=== PATIENT | male | born 1940 | race Caucasian/White ===

== ENCOUNTER 2016-09-26 13:52 | Emergency (ER) | payer MEDICARE, BC | END 2016-09-26 15:47 | disposition home or self-care (01) | DX: S63.501A Unspecified sprain of right wrist, initial encounter (principal); W01.0XXA Fall on same level from slipping, tripping and stumbling without subsequent striking against object, initial encounter; Y92.410 Unspecified street and highway as the place of occurrence of the external cause; Z79.4 Long term (current) use of insulin; E78.00 Pure hypercholesterolemia, unspecified; Z79.84 Long term (current) use of oral hypoglycemic drugs; Z79.01 Long term (current) use of anticoagulants; I48.91 Unspecified atrial fibrillation; E11.42 Type 2 diabetes mellitus with diabetic polyneuropathy ==

== ENCOUNTER 2016-10-12 10:13 | Outpatient (CLI) | payer MEDICARE, BC | END 2016-10-12 10:14 | disposition home or self-care (01) | DX: E87.6 Hypokalemia (principal) ==

== ENCOUNTER 2016-10-31 11:14 | Outpatient (CLI) | payer MEDICARE, BC | END 2016-10-31 11:15 | disposition home or self-care (01) | DX: M19.031 Primary osteoarthritis, right wrist (principal) ==

== ENCOUNTER 2016-12-15 11:46 | Outpatient (CLI) | payer MEDICARE, BC | END 2016-12-15 11:47 | disposition home or self-care (01) | DX: E11.65 Type 2 diabetes mellitus with hyperglycemia (principal); Z79.899 Other long term (current) drug therapy ==

== ENCOUNTER 2017-02-07 09:56 | Outpatient (CLI) | payer MEDICARE, BC ==
[2017-02-07 14:29] LABS: BASOPHILS % (AUTO) 0.5 %; EOSINOPHILS # (AUTO) 0.2 10^3/uL (0.0-0.7); EOSINOPHILS % (AUTO) 2.3 %; HCT - HEMATOCRIT 42.9 % (42.0-52.0); HGB - HEMOGLOBIN 14.3 g/dL (14.0-18.0); LYMPHOCYTES # (AUTO) 1.9 10^3/uL (1.5-3.5); LYMPHOCYTES % (AUTO) 24.2 %; MEAN CORPUSCULAR HEMOGLOBIN 28.9 pg (27.0-31.0); MEAN CORPUSCULAR HGB CONC 33.2 g/dL (32.0-36.0); MEAN PLATELET VOLUME 8.6 fL (7.4-11.4); MONOCYTES # (AUTO) 0.7 10^3/uL (0.0-1.0); MONOCYTES % (AUTO) 9.5 %; NEUTROPHILS % (AUTO) 63.5 %; RED BLOOD COUNT 4.94 10^6/uL (4.70-6.10); RED CELL DISTRIBUTION WIDTH 15.3 % (12.0-15.0); UNCORRECTED WHITE BLOOD COUNT 7.8 x10^3/uL; WHITE BLOOD COUNT 7.8 x10^3/uL (4.8-10.8)
[2017-02-07 14:47] LABS: ALBUMIN/GLOBULIN RATIO 1.1 (1.0-2.2); BILIRUBIN,TOTAL 1.4 mg/dL (0.2-1.0); BUN - BLOOD UREA NITROGEN 17 mg/dL (6-20); CALCIUM 9.1 mg/dL (8.5-10.3); CARBON DIOXIDE - CO2 30 mmol/L (21-32); CHLORIDE 101 mmol/L (101-111); CHOL/HDL RATIO 3.1 (<5.0); CHOLESTEROL 104 mg/dL; CREATININE 0.9 mg/dL (0.6-1.2); GFR - MDRD 82 (>89); GLUCOSE 68 mg/dL (70-100); HDL CHOLESTEROL 34 mg/dL; LDL/HDL RATIO 1.6 (<3.6); POTASSIUM 4.2 mmol/L (3.5-5.0); SODIUM 140 mmol/L (135-145); TOTAL PROTEIN 7.7 g/dL (6.7-8.2); TRIGLYCERIDES 83 mg/dL; VLDL CHOLESTEROL 17 mg/dL
== END 2017-02-07 09:57 | disposition home or self-care (01) ==
LOC: LAB.R 09:56
PROVIDERS: ATTEND Internal Medicine
DX: E03.9 Hypothyroidism, unspecified (principal); E78.2 Mixed hyperlipidemia; Z79.899 Other long term (current) drug therapy
CPT/HCPCS: 80053; 80061; 84443; 85025

== ENCOUNTER 2017-04-23 08:00 | Outpatient (CLI) | payer MEDICARE, BC ==
[2017-04-23 13:01] LABS: HEMOGLOBIN A1C 1.1 g/dL
== END 2017-04-23 08:01 | disposition home or self-care (01) ==
LOC: LAB.R 08:00
PROVIDERS: ATTEND Internal Medicine
DX: E11.65 Type 2 diabetes mellitus with hyperglycemia (principal)
CPT/HCPCS: 83036

== ENCOUNTER 2017-05-01 13:14 | Outpatient (CLI) | payer MEDICARE, BC ==
--- NOTE | 2017-05-02 10:03 | Ultrasound Report ---
CAROTID ULTRASOUND: 05/01/2017 TECHNIQUE: Real-time sonographic vascular imaging was performed by the senior data quality analyst through the carotid arteries utilizing both color-flow and Doppler spectral analysis. Multiple client service representative static images were saved for review. Vessel PSV cm/sec 2D Plaque Estimate % EDV cm/sec ICA/CCA PSV % Stenosis RCCA Prox 84 -- RCCA Dist 61 7 -- RECA 84 -- RT BULB 63 -- 5 1.0 WILBERTO Prox 52 -- 10 0.85 WILBERTO Mid 61 -- 14 1.0 WILBERTO Dist 43 -- 10 0.70 RVA 41 RVA flow direction: Antegrade. Vessel PSV cm/sec 2D Plaque Estimate % EDV cm/sec ICA/CCA PSV % Stenosis LCCA Prox 74 -- LCCA Dist 67 12 -- LECA 60 -- LFT BULB 58 -- 12 0.86 LICA Prox 59 -- 14 0.88 LICA Mid 76 -- 22 1.13 LICA Dist 127 -- 24 1.9 LVA 44 LVA flow direction: Antegrade. Velocity criteria are extrapolated from diameter data as defined by the Society of Radiologists in Ultrasound Consensus Conference Radiology 2003; 229; 340-346. Degree of Stenosis % ICA PSV cm/sec Plaque Estimate % ICA/CCA RSV Ratio ICA EDV cm/sec Normal < 125 None < 2.0 < 40 <50 < 125 < 50 < 2.0 < 40 50-69 125 - 130 >/= 50 2.0 - 4.0 40 - 100 >/= 70 but less than near occlusion > 230 >/= 50 > 4.0 > 100 Near occlusion High, low, or undetectable Visible lumen Variable Variable Total occlusion Undetectable No detectable lumen Not applicable Not applicable FINDINGS RIGHT: There is mild plaquing in the right carotid bifurcation, without evidence of a focal hemodynamically significant carotid stenosis. LEFT: There is mild plaquing in the left carotid bifurcation, without evidence of a focal hemodynamically significant carotid stenosis. The vertebral arteries demonstrate antegrade flow bilaterally. CONCLUSION: NO FLOW-LIMITING STENOSIS IN EITHER CAROTID SYSTEM. BILATERAL VERTEBRAL ARTERY ANTEGRADE BLOOD FLOW. [facility]
== END 2017-05-01 13:15 | disposition home or self-care (01) ==
LOC: DI 13:14
PROVIDERS: ATTEND Internal Medicine
DX: G45.9 Transient cerebral ischemic attack, unspecified (principal)
CPT/HCPCS: 93880

== ENCOUNTER 2017-05-17 09:50 | Outpatient (CLI) | payer MEDICARE, BC ==
[2017-05-17 18:05] LABS: CREATININE 0.6 mg/dL (0.6-1.2)
== END 2017-05-17 09:51 | disposition home or self-care (01) ==
LOC: LAB.R 09:50
PROVIDERS: ATTEND Internal Medicine
DX: G45.9 Transient cerebral ischemic attack, unspecified (principal)
CPT/HCPCS: 82565

== ENCOUNTER 2017-05-18 12:12 | Emergency (ER) | payer MEDICARE, BC ==
[2017-05-18] MEDS ORDERED: ACETAMINOPHEN 325 MG TABLET PO STA (12:55)
--- NOTE | 2017-05-18 12:57 | ED Physician Documentation ---
History of Present Illness - Stated complaint Stated Complaint: R ELBOW LAC - Chief complaint Chief Complaint: General - History obtained from History obtained from: Patient - History of Present Illness Timing: How many hours ago (8) Pain level max: 6 Pain level now: 6 - Additonal information Additional information: Patient is a 77-year-old male who was getting up this morning to try to use the bathroom, tripped and fell. Landed on his right elbow suffering an abrasion to the posterior aspect of the right elbow. Also struck his head and neck on the wall as he fell. Now complains of increasing neck pain. No numbness or tingling. Mild headache. Patient does take Pradaxa. Has not taken anything for the pain this morning. States his last tetanus shot was within the last 10 years. No other reported injuries. Pain is better with rest and worse with movement. Review of Systems Constitutional: denies: Fever, Chills Cardiac: denies: Chest pain / pressure Respiratory: denies: Cough GI: denies: Abdominal Pain, Nausea, Vomiting : denies: Unable to Void Skin: denies: Rash Musculoskeletal: denies: Back pain Neurologic: denies: Focal weakness, Numbness, Confused, Altered mental status PD PAST MEDICAL HISTORY - Past Medical History Cardiovascular: High cholesterol, Atrial fibrillation, Murmur, Valve disorder Respiratory: Asthma Neuro: Peripheral neuropathy Endocrine/Autoimmune: Type 2 diabetes GI: GERD, Chronic constipation : None HEENT: None Psych: None Musculoskeletal: Other Derm: Other - Past Surgical History Past Surgical History: Yes General: Colonoscopy, EGD Ortho: Knee replacement, Rotator cuff repair, Carpal Tunnel surgery, Spine surgery Cardiovascular: CABG, Coronary stent HEENT: Tonsil/Adenoidectomy Derm: Skin cancer surgery - Present Medications Home Medications: Ambulatory Orders Medication Instructions Recorded Confirmed Insulin Aspart (Vial) [NovoLOG] 0 - 20 units SUBQ TIDWM 03/06/13 05/18/17 Insulin Detemir [Levemir] 46 unit SQ BID 03/06/13 05/18/17 Ramipril [Altace] 10 mg PO DAILY 03/06/13 05/18/17 Tramadol HCl [Ultram ER] 300 mg PO QPM 03/06/13 05/18/17 metFORMIN [Glucophage] 1,000 mg PO BIDWM 03/06/13 05/18/17 Calcium Carbonate/Vitamin D3 1 each PO DAILY 04/16/13 05/18/17 [Calcium 500 + Vit D 200 Caplet] Hydrochlorothiazide 12.5 mg PO DAILY 04/16/13 05/18/17 Metoprolol Succinate [Toprol Xl] 25 mg PO BID 04/16/13 05/18/17 Multivitamin [Multivitamins] 1 each PO DAILY 04/16/13 05/18/17 Pregabalin [Lyrica] 200 - 300 mg PO BID 04/16/13 05/18/17 Glucosamine/Chondroitin Sulf A 1 cap PO BID 07/31/14 05/18/17 [Glucosamine Chondroitin Cap] Atorvastatin Calcium 80 mg PO QPM 02/26/15 05/18/17 Dabigatran Etexilate Mesylate 150 mg PO BID 02/26/15 05/18/17 [Pradaxa] Levothyroxine [Synthroid] 75 mcg PO DAILY 09/03/15 05/18/17 - Allergies Allergies/Adverse Reactions: Allergies Allergy/AdvReac Type Severity Reaction Status Date / Time codeine [Codeine] Allergy Severe Emesis Verified 05/18/17 13:06 - Social History Does the pt smoke?: No Smoking Status: Never smoker Does the pt drink ETOH?: No Does the pt have substance abuse?: No - Immunizations Immunizations are current?: Yes PD ED PE NORMAL - Vitals Vital signs reviewed: Yes - General General: Alert and oriented X 3, No acute distress, Well developed/nourished - HEENT HEENT: Atraumatic, PERRL, EOMI, Ears normal, Moist mucous membranes, Pharynx benign - Neck Neck: Supple, no meningeal sign, Other (Mild diffuse midline tenderness to palpation over the entire cervical spine. Mainly C2 through C4.) - Cardiac Cardiac: RRR, Strong equal pulses - Respiratory Respiratory: No respiratory distress, Clear bilaterally - Abdomen Abdomen: Soft, Non tender, Non distended - Back Back: No spinal TTP - Derm Derm: Warm and dry, No rash - Extremities Extremities: No deformity, Other (Abrasions to the posterior aspect of the right elbow. Is able to fully range the right elbow, but does have pain. Is able to pronate and supinate the elbow without pain. Does have mildly swollen soft tissues along the posterior aspect of the distal humerus. Neurovascularly intact. Tenderness to palpation over the distal humerus. Otherwise normal exam of the 4 extremities) - Neuro Neuro: Alert and oriented X 3, administrative professional 2-12 intact, No motor deficit, No sensory deficit, Normal speech GCS Score: 15 - Psych Psych: Normal mood, Normal affect Results - Vitals Vitals: Vital Signs - 24 hr 05/18/17 05/18/17 12:17 14:35 Temperature 35.9 C L 36.4 C L Heart Rate 63 61 Respiratory 16 18 Rate Blood Pressure 151/73 H 137/75 H O2 Saturation 99 99 Oxygen O2 Source Room air - Rads (name of study) Head CT Radiology: Prelim report reviewed, EMP read contemporaneously, See rad report ( Generalized age-related cortical atrophic changes without evidence of acute intracranial abnormality) Cervical spine CT Radiology: Prelim report reviewed, EMP read contemporaneously, See rad report ( No acute bony abnormality. 2. Multilevel moderate to marked central spinal canal stenosis with flattening of the cervical cord due to extensive dystrophic confluent calcification of the posterior longitudinal ligament. ) Right elbow x-ray Radiology: Prelim report reviewed, EMP read contemporaneously, See rad report ( No acute bony abnormality. ) PD MEDICAL DECISION MAKING - ED course Complexity details: reviewed results, re-evaluated patient, considered differential, d/w patient ED course: Patient is a 77-year-old male who is status post a ground-level fall at home. Pain improved with Tylenol. He does take Pradaxa and did strike his head, therefore head CT is performed with no acute abnormalities. No acute bony abnormalities in the cervical spine, appears to have paraspinal spasm, will utilize Tylenol for this at home as well as his tramadol. Patient also has an abrasion to the right posterior elbow, this was cleansed and bandaged. Tolerated well. Warnings of infection and instructions on wound care given at bedside. No acute findings on x-ray. Ambulating well in the emergency department. No focal neurological deficits. No other injuries. Patient counseled regarding signs and symptoms for which I believe and urgent re- evaluation would be necessary. Patient with good understanding of and agreement to plan and is comfortable going home at this time This document was made in part using voice recognition software. While efforts are made to proofread this document, sound alike and grammatical errors may occur. Departure - Departure Disposition: 01 Home, Self Care Clinical Impression: Fall Qualifiers: Encounter type: initial encounter Qualified Code(s): W19.XXXA - Unspecified fall, initial encounter Elbow abrasion Qualifiers: Encounter type: initial encounter Laterality: right Qualified Code(s): S50.311A - Abrasion of right elbow, initial encounter Elbow contusion Qualifiers: Encounter type: initial encounter Laterality: right Qualified Code(s): S50.01XA - Contusion of right elbow, initial encounter Neck strain Qualifiers: Encounter type: initial encounter Qualified Code(s): S16.1XXA - Strain of muscle, fascia and tendon at neck level, initial encounter Condition: Good Instructions: ED Abrasion, ED Sprain Strain Neck Follow-Up: Steven Garcia MD [Primary Care Provider] - Within 1 week Comments: Return if you worsen. Keep the wound clean. Your xrays and CT are normal today. You can use tramadol and tylenol for pain. Use a heating pad for your neck and gently stretch it thoughout the day. Your blood pressure was elevated today on check in to the emergency department. This does not mean that you have hypertension, it is a common phenomenon to check into the emergency department and have elevated blood pressure. I recommend that you see your primary care physician within the week to have it rechecked when you're feeling better. Discharge Date/Time: 05/18/17 14:35
[2017-05-18] MEDS ORDERED: ACETAMINOPHEN 325 MG TABLET PO ONE (13:40)
--- NOTE | 2017-05-18 14:00 | CT Preliminary Report ---
Exam: CT Head W/O IMPRESSION: Generalized age-related cortical atrophic changes without evidence of acute intracranial abnormality. [facility] SITE ID: [id number]
[2017-05-18] MEDS ORDERED: BACITRACIN OINT TOP ONE (14:01)
--- NOTE | 2017-05-18 14:02 | XRAY Preliminary Report ---
Exam: XR Elbow 3 View RT IMPRESSION: No acute bony abnormality. [facility] SITE ID: [id number]
--- NOTE | 2017-05-18 14:11 | CT Preliminary Report ---
Exam: CT Cervical Spine W/O IMPRESSION: 1. No acute bony abnormality. 2. Multilevel moderate to marked central spinal canal stenosis with flattening of the cervical cord d ue to extensive confluent calcification of the posterior longitudinal ligament. [facility] SITE ID: [id number]
--- NOTE | 2017-05-18 14:14 | XRAY Report ---
EXAM: RIGHT ELBOW RADIOGRAPHY EXAM DATE: 05/18/2017 01:35 PM. CLINICAL HISTORY: Fall right elbow pain. COMPARISON: None. TECHNIQUE: 3 views. FINDINGS: Bones: Normal. No fractures or bone lesions. Joints: Normal. Dystrophic calcifications at the superior attachment of both collateral ligament comp lexes indicating remote injury. No effusion. No subluxation. Soft Tissues: Large intact osteophyte at the triceps insertion at the olecranon. IMPRESSION: No acute bony abnormality. [facility] Referring Provider Line: [phone] SITE ID: [id number]
--- NOTE | 2017-05-18 14:14 | CT Report ---
EXAM: CT HEAD EXAM DATE: 05/18/2017 01:20 PM. CLINICAL HISTORY: Fall, head injury, patient on pradaxa. Pain. COMPARISON: None. TECHNIQUE: Multiaxial CT images were obtained from the foramen magnum to the vertex. IV contrast: Non e. Reformats: Coronal. In accordance with CT protocol optimization, one or more of the following dose reduction techniques w ere utilized for this exam: automated exposure control, adjustment of mA and/or KV based on patient s ize, or use of iterative reconstructive technique. FINDINGS: Parenchyma: No intraparenchymal hemorrhage. No evidence of mass, midline shift, or CT findings of acu te infarction. Merritt-white differentiation is distinct. Extraaxial Spaces: Normal for age. No subdural or epidural collections identified. Ventricles: The ventricles and cortical sulci are enlarged, consistent with age-related tissue loss. Sinuses: Imaged paranasal sinuses, orbits, and mastoids show no significant abnormality. Bones: No evidence of fracture or calvarial defect. Other: Diffuse chronic microangiopathic white matter changes are evident. IMPRESSION: Generalized age-related cortical atrophic changes without evidence of acute intracranial abnormality. [facility] Referring Provider Line: [phone] SITE ID: [id number]
--- NOTE | 2017-05-18 14:21 | CT Report ---
EXAM: CT CERVICAL SPINE WITHOUT CONTRAST DATE: 05/18/2017 01:31 PM HISTORY: Fall with head trauma this morning, neck pain. COMPARISONS: None. TECHNIQUE: Thin-section axial images were acquired of the cervical spine without contrast. Post-proce ssing: Coronal and sagittal reformats. Other: None. In accordance with CT protocol optimization, one or more of the following dose reduction techniques w ere utilized for this exam: automated exposure control, adjustment of mA and/or KV based on patient s ize, or use of iterative reconstructive technique. FINDINGS: Alignment: Normal. No scoliosis or spondylolisthesis. Bones: No fracture or bone lesion. Interspace Levels/Facets: Moderate narrowing of the C4-C5, C5-C6 and C6-C7 disk spaces with moderate subcortical sclerosis and moderate-caliber osteophytes. Extensive dystrophic confluent calcification in the posterior longitudinal ligament more prominent on the left, from the level of the base of the odontoid inferiorly to the superior endplate of C5. This causes marked compromise of the central spinal canal such that there is moderate to marked bony neur oforaminal compromise throughout this length with flattening of the cervical cord. There is a lesser degree of central spinal canal stenosis at C5-C6, moderate in degree. There is an old moderate-sized disk herniation at C6-C7 with moderate bony central spinal canal compr omise. There is multilevel marked bony neuroforaminal compromise. Musculature: Normal. No fatty atrophy. Other: The paravertebral and prevertebral soft tissues are normal. The lung apices are clear. IMPRESSION: 1. No acute bony abnormality. 2. Multilevel moderate to marked central spinal canal stenosis with flattening of the cervical cord d ue to extensive dystrophic confluent calcification of the posterior longitudinal ligament. [facility] Referring Provider Line: [phone] SITE ID: [id number]
[2017-05-18 14:36] VITALS: BP 137/75
== END 2017-05-18 14:35 | disposition home or self-care (01) ==
LOC: ED 12:12
DX: S16.1XXA Strain of muscle, fascia and tendon at neck level, initial encounter (principal); S50.01XA Contusion of right elbow, initial encounter; S50.311A Abrasion of right elbow, initial encounter; W01.0XXA Fall on same level from slipping, tripping and stumbling without subsequent striking against object, initial encounter; Y92.019 Unspecified place in single-family (private) house as the place of occurrence of the external cause; E78.00 Pure hypercholesterolemia, unspecified; I48.91 Unspecified atrial fibrillation; J45.909 Unspecified asthma, uncomplicated; E11.42 Type 2 diabetes mellitus with diabetic polyneuropathy; Z79.4 Long term (current) use of insulin; K21.9 Gastro-esophageal reflux disease without esophagitis; I25.10 Atherosclerotic heart disease of native coronary artery without angina pectoris; Z95.1 Presence of aortocoronary bypass graft; Z85.828 Personal history of other malignant neoplasm of skin
CPT/HCPCS: 70450; 72125; 73080; 99283; 99284; A9270

== ENCOUNTER 2017-05-21 12:52 | Outpatient (CLI) | payer MEDICARE, BC ==
[~2017-05-21 12:52] MED LIST: GADOBUTROL 10 MMOL/10 ML VIAL ONE
[2017-05-21] MEDS ORDERED: GADOBUTROL 10 MMOL/10 ML VIAL IVP ONE (13:44)
--- NOTE | 2017-05-21 14:29 | MRI Report ---
EXAM: MRI BRAIN WITHOUT AND WITH CONTRAST EXAM DATE: 05/21/2017 01:49 PM. CLINICAL HISTORY: TIA. COMPARISON: CT head 05/18/2017. TECHNIQUE: Multiplanar, multisequence T1-weighted and fluid-sensitive MR sequences of the brain were performed. Sequences optimized for routine evaluation. Other: None. Without and with IV Contrast: 10 cc GADAVIST. FINDINGS: Brain Volume: Normal for age. Parenchyma/Dura: No acute parenchymal hemorrhage, mass, or midline shift. [id number] bilateral areas of T2/FLAIR signal hyperintensity seen. Old chronic lacunar infarcts are seen within the left c erebellum, right and left courtney, and bilateral basal ganglia. No areas of restricted diffusion to sugg est acute infarct. No abnormal areas of parenchymal susceptibility to suggest prior hemorrhage. No ab normal postcontrast enhancement. Pituitary: Normal. Ventricles/Cisterns: No abnormal extra axial fluid collection/mass seen. There is asymmetry to the la teral ventricles with a larger right lateral ventricle compared to the left. This may be a normal sahra tomic variant. No evidence hydrocephalus. Cisterns are patent. Fluid is seen within Meckel's caves. V isualized internal auditory canals appear clear. Sinuses: Minimal mucosal thickening of the ethmoid air cells. Mastoid air cells middle ear cavities a re clear. Orbits: Changes of bilateral lens replacement. Vasculature: The visualized major intracranial flow voids are maintained. Dural sinuses are patent. Bones: Normal. Other: None. IMPRESSION: 1. No acute infarct, intracranial hemorrhage, mass, hydrocephalus, or abnormal postcontrast enhanceme nt. 2. Bypq-ea-jjalprye white matter changes including old chronic lacunar infarcts of the left cerebellu m, right and left courtney, and bilateral basal ganglia. Findings likely represent sequela of chronic sma ll vessel ischemic disease. [facility] Referring Provider Line: [phone] SITE ID: [id number]
== END 2017-05-21 12:53 | disposition home or self-care (01) ==
LOC: DI 12:52
PROVIDERS: ATTEND Internal Medicine
DX: G45.9 Transient cerebral ischemic attack, unspecified (principal); Z86.73 Personal history of transient ischemic attack (TIA), and cerebral infarction without residual deficits
CPT/HCPCS: 70553; A9585

== ENCOUNTER 2017-08-14 10:30 | Outpatient (CLI) | payer MEDICARE, BC | END 2017-08-14 10:31 | disposition home or self-care (01) | LOC: LAB.R 10:30 | PROVIDERS: ATTEND Podiatrist | DX: E11.622 Type 2 diabetes mellitus with other skin ulcer (principal) | CPT/HCPCS: 87070; 87205 ==

== ENCOUNTER 2017-10-01 19:09 | Outpatient (CLI) | payer MEDICARE, BC ==
[2017-10-01 13:16] LABS: HB2 TOTAL 14.1 g/dL; HEMOGLOBIN A1C 1.13 g/dL; HEMOGLOBIN A1C % 9.5 % (4.6-6.2)
== END 2017-10-01 19:10 | disposition home or self-care (01) ==
LOC: LAB.R 19:09
PROVIDERS: ATTEND Internal Medicine
DX: E11.29 Type 2 diabetes mellitus with other diabetic kidney complication (principal)
CPT/HCPCS: 83036

== ENCOUNTER 2018-01-15 08:00 | Outpatient (CLI) | payer MEDICARE, BC ==
[2018-01-15 19:38] LABS: HB2 TOTAL 13.9 g/dL; HEMOGLOBIN A1C 0.94 g/dL; HEMOGLOBIN A1C % 8.3 % (4.6-6.2)
== END 2018-01-15 08:01 | disposition home or self-care (01) ==
LOC: LAB.R 08:00
PROVIDERS: ATTEND Internal Medicine
DX: E11.65 Type 2 diabetes mellitus with hyperglycemia (principal); E11.29 Type 2 diabetes mellitus with other diabetic kidney complication
CPT/HCPCS: 83036

== ENCOUNTER 2018-01-28 16:02 | Outpatient (CLI) | payer MEDICARE, BC ==
--- NOTE | 2018-01-29 04:35 | XRAY Report ---
Procedure Date: 01/28/2018 Accession Number: [id number] / [id number] Procedure: XR - Foot 3 View RT CPT Code: FULL RESULT: EXAM: RIGHT FOOT RADIOGRAPHY EXAM DATE: 01/28/2018 04:35 PM. CLINICAL HISTORY: LONG STANDING ULCER ON RT FOOT EVAL BONE. COMPARISON: MRI 03/17/2016. TECHNIQUE: 3 views. 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 No osteolysis to suggest osteomyelitis. Joints: Extensive Charcot joint changes in the midfoot. Soft Tissues: Soft tissue swelling. No radiopaque foreign body is identified. 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 No definite osteolysis to suggest osteomyelitis. [facility]
== END 2018-01-28 16:03 | disposition home or self-care (01) ==
LOC: DI 16:02
PROVIDERS: ATTEND Podiatrist
DX: L97.519 Non-pressure chronic ulcer of other part of right foot with unspecified severity (principal); Z89.421 Acquired absence of other right toe(s)

== ENCOUNTER 2018-04-10 13:30 | Outpatient (CLI) | payer MEDICARE, BC | END 2018-04-10 13:31 | disposition home or self-care (01) | LOC: LAB.R 13:30 | PROVIDERS: ATTEND Podiatrist | DX: E11.622 Type 2 diabetes mellitus with other skin ulcer (principal) | CPT/HCPCS: 87070; 87205 ==

== ENCOUNTER 2018-04-11 09:59 | Outpatient (CLI) | payer MEDICARE, BC ==
[2018-04-11 11:54] LABS: BASOPHILS % (AUTO) 0.6 %; EOSINOPHILS # (AUTO) 0.3 10^3/uL (0.0-0.7); EOSINOPHILS % (AUTO) 3.7 %; HGB - HEMOGLOBIN 12.1 g/dL (14.0-18.0); LYMPHOCYTES # (AUTO) 1.2 10^3/uL (1.5-3.5); LYMPHOCYTES % (AUTO) 14.6 %; MEAN CORPUSCULAR HEMOGLOBIN 29.8 pg (27.0-31.0); MEAN CORPUSCULAR VOLUME 87.5 fL (80.0-94.0); MEAN PLATELET VOLUME 8.2 fL (7.4-11.4); MONOCYTES # (AUTO) 0.6 10^3/uL (0.0-1.0); MONOCYTES % (AUTO) 7.2 %; NEUTROPHILS % (AUTO) 73.9 %; PLT - PLATELET COUNT 337 10^3/uL (130-450); RED BLOOD COUNT 4.06 10^6/uL (4.70-6.10); RED CELL DISTRIBUTION WIDTH 16.4 % (12.0-15.0); WHITE BLOOD COUNT 8.1 x10^3/uL (4.8-10.8)
[2018-04-11 12:15] LABS: ALBUMIN 3.8 g/dL (3.2-5.5); ALKALINE PHOSPHATASE 60 IU/L (42-121); ALT ALANINE AMINOTRANSFERASE 31 IU/L (10-60); AST ASPARTATE AMINOTRANSFERASE 29 IU/L (10-42); BILIRUBIN,TOTAL 1.2 mg/dL (0.2-1.0); BUN - BLOOD UREA NITROGEN 21 mg/dL (6-20); CALCIUM 9.5 mg/dL (8.5-10.3); CARBON DIOXIDE - CO2 28 mmol/L (21-32); CHLORIDE 101 mmol/L (101-111); CHOL/HDL RATIO 3.8 (<5.0); CHOLESTEROL 172 mg/dL; CREATININE 0.7 mg/dL (0.6-1.2); GFR - MDRD 109 (>89); HDL CHOLESTEROL 45 mg/dL; LDL CHOLESTEROL,CALCULATED 113 mg/dL; LDL/HDL RATIO 2.5 (<3.6); SODIUM 138 mmol/L (135-145); TOTAL PROTEIN 7.7 g/dL (6.7-8.2); VLDL CHOLESTEROL 14 mg/dL
[2018-04-11 12:17] LABS: GLUCOSE 46 mg/dL (70-100)
[2018-04-11 12:43] LABS: HB2 TOTAL 12.8 g/dL; HEMOGLOBIN A1C 0.72 g/dL; HEMOGLOBIN A1C % 7.3 % (4.6-6.2)
== END 2018-04-11 10:00 | disposition home or self-care (01) ==
LOC: LAB.R 09:59
PROVIDERS: ATTEND Internal Medicine
DX: I48.91 Unspecified atrial fibrillation (principal); Z79.899 Other long term (current) drug therapy; I25.10 Atherosclerotic heart disease of native coronary artery without angina pectoris; E78.5 Hyperlipidemia, unspecified; E11.29 Type 2 diabetes mellitus with other diabetic kidney complication; I10 Essential (primary) hypertension
CPT/HCPCS: 80053; 80061; 83036; 83721; 84443; 85025

== ENCOUNTER 2018-04-12 12:07 | Emergency (ER) | payer MEDICARE, BC ==
--- NOTE | 2018-04-12 12:23 | ED Physician Documentation ---
PD HPI DYSPNEA - Stated complaint Stated Complaint: DIFFICULTY BREATHING/ POSS AFIB - Chief complaint Chief Complaint: Resp - History obtained from History obtained from: Patient - History of Present Illness Timing - onset: How many days ago (2-3) Timing - onset during: Light activity Timing - duration: Days (2-3) Timing - details: Gradual onset, Still present Inciting event(s): Exposure (ie smoke) (he had had some dyspnea with the smoky air last week and used his Albuterol PRN. Was doing okay. Now with increasing dyspnea over the past 2-3 days, worse with activity and lying down, better sitting up. No cough. Some improvement with Albuterol MDI last night.). No: URI , Exercise Improved by: Rest, Sitting up Worsened by: Exertion, Laying flat Associated symptoms: Wheezing. No: Fever, Cough, Chest pain / discomfort, Palpitations, Bilateral edema Similar symptoms before: Diagnosis (has had similar with asthma in the past, and also history of intermittent atrial fib and aortic stenosis but no consistent CHF.) Recently seen: Not recently seen Review of Systems Constitutional: denies: Fever, Chills, Myalgias Nose: denies: Rhinorrhea / runny nose, Congestion Throat: denies: Sore throat Cardiac: denies: Chest pain / pressure, Palpitations, Pedal edema, Calf pain Respiratory: reports: Dyspnea. denies: Cough GI: denies: Abdominal Pain, Nausea, Vomiting, Diarrhea : reports: Frequency. denies: Dysuria Skin: denies: Rash, Lesions Neurologic: reports: Generalized weakness. denies: Focal weakness, Numbness, Altered mental status, Headache PD PAST MEDICAL HISTORY - Past Medical History Cardiovascular: High cholesterol, Atrial fibrillation, Murmur, Valve disorder Respiratory: Asthma Endocrine/Autoimmune: Type 2 diabetes GI: GERD, Chronic constipation : None HEENT: None Psych: None Musculoskeletal: Other Derm: Other - Past Surgical History Past Surgical History: Yes General: Colonoscopy, EGD Ortho: Knee replacement, Rotator cuff repair, Carpal Tunnel surgery, Spine surgery Cardiovascular: CABG, Coronary stent HEENT: Tonsil/Adenoidectomy Derm: Skin cancer surgery - Present Medications Home Medications: Ambulatory Orders Medication Instructions Recorded Confirmed Insulin Aspart (Vial) [NovoLOG] 0 - 20 units SUBQ TIDWM 03/06/13 12/25/17 Insulin Detemir [Levemir] 70 unit SQ BID 03/06/13 12/25/17 Ramipril [Altace] 10 mg PO DAILY 03/06/13 12/25/17 Tramadol HCl [Ultram ER] 300 mg PO QPM 03/06/13 12/25/17 metFORMIN [Glucophage] 1,000 mg PO BIDWM 03/06/13 12/25/17 Calcium Carbonate/Vitamin D3 1 each PO DAILY 04/16/13 12/25/17 [Calcium 500 + Vit D 200 Caplet] Hydrochlorothiazide 12.5 mg PO DAILY 04/16/13 12/25/17 Metoprolol Succinate [Toprol Xl] 25 mg PO BID 04/16/13 12/25/17 Multivitamin [Multivitamins] 1 each PO DAILY 04/16/13 12/25/17 Pregabalin [Lyrica] 200 - 300 mg PO BID 04/16/13 12/25/17 Glucosamine/Chondroitin Sulf A 1 cap PO BID 07/31/14 12/25/17 [Glucosamine Chondroitin Cap] Atorvastatin Calcium 80 mg PO QPM 02/26/15 12/25/17 Dabigatran Etexilate Mesylate 150 mg PO BID 02/26/15 12/25/17 [Pradaxa] Levothyroxine [Synthroid] 75 mcg PO DAILY 09/03/15 12/25/17 Albuterol Sulf [Ventolin Hfa 2 - 3 puffs INH Q4HR PRN #1 inhaler 04/12/18 Inhaler] Amlodipine Besylate [Norvasc] 1 tab PO DAILY 04/12/18 04/12/18 Dexamethasone [Decadron] 4 mg PO DAILY #5 tablet 04/12/18 Esomeprazole Magnesium 1 tab PO DAILY 04/12/18 04/12/18 Fluticasone Propionate [Flovent 1 puffs INH BID 04/12/18 04/12/18 Diskus] Furosemide [Lasix] 20 mg PO DAILY #30 tablet 04/12/18 Iron,Carbonyl/Ascorbic Acid [Fe C 1 tab PO DAILY 04/12/18 04/12/18 Tablet] Isosorbide Mononitrate ER [Imdur] 1 tab PO DAILY 04/12/18 04/12/18 - Allergies Allergies/Adverse Reactions: Allergies Allergy/AdvReac Type Severity Reaction Status Date / Time codeine [Codeine] Allergy Severe Emesis Verified 04/12/18 12:14 - Social History Does the pt smoke?: No Smoking Status: Never smoker Does the pt drink ETOH?: No Does the pt have substance abuse?: No - Family History Family history: reports: Non contributory - Immunizations Immunizations are current?: Yes PD ED PE NORMAL - Vitals Vital signs reviewed: Yes - General General: Alert and oriented X 3, No acute distress, Well developed/nourished - HEENT HEENT: Moist mucous membranes, Pharynx benign - Neck Neck: Supple, no meningeal sign, No adenopathy, No bruit - Cardiac Cardiac: Other (2/6 murmur at left chest c/w ). No: RRR (good rate but irregular c/w atrial fib) - Respiratory Respiratory: No: Clear bilaterally (fine crackles at bases. Some prolonged exp phase. No wheezing per se. ) - Abdomen Abdomen: Soft, Non tender - Male Male : Deferred - Rectal Rectal: Deferred - Back Back: No CVA TTP - Derm Derm: Normal color, Warm and dry - Extremities Extremities: Normal ROM s pain, No edema, Other (brace on left ankle and knee. No calf tenderness nor edema. ) - Neuro Neuro: Alert and oriented X 3, No motor deficit, Normal speech Results - Vitals Vitals: Vital Signs - 24 hr 04/12/18 04/12/18 04/12/18 12:10 13:02 13:06 Temperature 36.2 C L Heart Rate 84 72 83 Respiratory 22 20 19 Rate Blood Pressure 151/85 H 139/74 H O2 Saturation 96 100 04/12/18 04/12/18 15:07 17:40 Temperature Heart Rate 78 81 Respiratory 16 16 Rate Blood Pressure 139/74 H 148/82 H O2 Saturation 96 95 Oxygen O2 Source Room air - EKG (time done) 12:17 Rate: Rate (enter#) (85) Rhythm: Atrial fibrillation [place]: Normal Intervals: Wide QRS, RBBB Ischemia: Non specific changes Compare to prior EKG: Old EKG unavailable - Labs Labs: Laboratory Tests 04/12/18 04/12/18 04/12/18 12:30 12:30 12:30 WBC 7.5 RBC 4.00 L Hgb 11.9 L Hct 35.0 L MCV 87.7 MCH 29.8 MCHC 34.0 RDW 16.6 H Plt Count 311 MPV 8.1 Neut # (Auto) 5.8 Lymph # (Auto) 0.9 L [place] # (Auto) 0.5 Eos # (Auto) 0.2 Baso # (Auto) 0.1 Absolute Nucleated RBC 0.00 Nucleated RBC % 0.0 Sodium 136 Potassium 3.8 Chloride 100 L Carbon Dioxide 27 Anion Gap 9.0 BUN 22 H Creatinine 0.6 Estimated GFR (MDRD) 131 Glucose 64 L Calcium 8.9 Magnesium 1.8 Total Bilirubin 1.7 H AST 25 ALT 29 Alkaline Phosphatase 57 Troponin I 0.06 B-Natriuretic Peptide Total Protein 7.5 Albumin 3.7 Globulin 3.8 Albumin/Globulin Ratio 1.0 Lipase 27 04/12/18 12:30 WBC RBC Hgb Hct MCV MCH MCHC RDW Plt Count MPV Neut # (Auto) Lymph # (Auto) [place] # (Auto) Eos # (Auto) Baso # (Auto) Absolute Nucleated RBC Nucleated RBC % Sodium Potassium Chloride Carbon Dioxide Anion Gap BUN Creatinine Estimated GFR (MDRD) Glucose Calcium Magnesium Total Bilirubin AST ALT Alkaline Phosphatase Troponin I B-Natriuretic Peptide 458 H Total Protein Albumin Globulin Albumin/Globulin Ratio Lipase - Rads (name of study) chest xray Radiology: Prelim report reviewed, EMP read contemporaneously (mild vascular congestion; no effusion; no infiltrate. ) ECHO Radiology: Prelim report reviewed (biatrial enlargement. aortic stenosis with opening size smaller than prior. pressure gradient 45. No effusion. ) PD MEDICAL DECISION MAKING - ED course Complexity details: reviewed results, re-evaluated patient (he was improved with albuterol neb so likely some part is asthma/RAD. Has elevated BNP to 480s and CXR some mild edema, though Radiologist reads as normal. His aortic stenosis has worsened to severe level with gradient 45 and whole size decreased. He feels better here with some diuresis and the neb. ), considered differential, d/w patient, d/w [facility] ad[facility] consultant (Cardiology cardiac sonographer for Dr. Carrillo - who would start Lasix daily, and have pt see Dr. Carrillo soon to discuss treatment options. ) - Sepsis Event Vital Signs: Vital Signs - 24 hr 04/12/18 04/12/18 04/12/18 12:10 13:02 13:06 Temperature 36.2 C L Heart Rate 84 72 83 Respiratory 22 20 19 Rate Blood Pressure 151/85 H 139/74 H O2 Saturation 96 100 04/12/18 04/12/18 15:07 17:40 Temperature Heart Rate 78 81 Respiratory 16 16 Rate Blood Pressure 139/74 H 148/82 H O2 Saturation 96 95 Oxygen O2 Source Room air Departure - Departure Disposition: 01 Home, Self Care Clinical Impression: Dyspnea on effort Congestive heart failure Qualifiers: Heart failure type: systolic Heart failure chronicity: acute on chronic Qualified Code(s): I50.23 - Acute on chronic systolic (congestive) heart failure Asthma Qualifiers: Asthma severity: mild Asthma persistence: intermittent Asthma complication type : with acute exacerbation Qualified Code(s): J45.21 - Mild intermittent asthma with (acute) exacerbation Condition: Stable Record reviewed to determine appropriate education?: Yes Instructions: ED CHF Left Side, ED Dyspnea Shortness of Breath Follow-Up: Steven Garcia MD [Primary Care Provider] - Esperanza Cardenas MD [Provider Admit Priv/Credential] - Prescriptions: Albuterol Sulf [Ventolin Hfa Inhaler] 2 - 3 puffs INH Q4HR PRN #1 inhaler PRN Reason: Shortness Of Air/Wheezing Dexamethasone [Decadron] 4 mg PO DAILY #5 tablet Furosemide [Lasix] 20 mg PO DAILY #30 tablet Comments: I think your trouble breathing is from both lung and heart causes. Use your albuterol inhaler 2 puffs 3-4 times a day for the next several days up to a week. Also will add Decadron steroid daily for several days to help with bronchial inflammation. If you find your blood sugars going unusually high then stop the steroid. Additionally your echocardiogram is showing your aortic valve is getting significantly tight and your heart is not functioning as well subsequently. Will have you start a diuretic called furosemide 20 mg daily in the mornings. Follow-up with Dr. Garcia for recheck in early next week. Also call Dr. Cardenas's office as you will want a follow-up with her to discuss potential treatments for the aortic stenosis/valve problem. Discharge Date/Time: 04/12/18 17:49
[2018-04-12] MEDS ORDERED: ALBUTEROL NEB 2.5 MG/3 ML INH STA (12:44)
[2018-04-12] MEDS ORDERED: FUROSEMIDE 20 MG/2 ML VIAL IVP STA (12:45)
[2018-04-12 12:51] LABS: BASOPHILS # (AUTO) 0.1 10^3/uL (0.0-0.1); BASOPHILS % (AUTO) 0.8 %; EOSINOPHILS # (AUTO) 0.2 10^3/uL (0.0-0.7); EOSINOPHILS % (AUTO) 3.1 %; HGB - HEMOGLOBIN 11.9 g/dL (14.0-18.0); LYMPHOCYTES # (AUTO) 0.9 10^3/uL (1.5-3.5); LYMPHOCYTES % (AUTO) 12.2 %; MEAN CORPUSCULAR HEMOGLOBIN 29.8 pg (27.0-31.0); MEAN CORPUSCULAR VOLUME 87.7 fL (80.0-94.0); MEAN PLATELET VOLUME 8.1 fL (7.4-11.4); MONOCYTES # (AUTO) 0.5 10^3/uL (0.0-1.0); MONOCYTES % (AUTO) 6.9 %; NEUTROPHILS # (AUTO) 5.8 10^3/uL (1.5-6.6); PLT - PLATELET COUNT 311 10^3/uL (130-450); RED CELL DISTRIBUTION WIDTH 16.6 % (12.0-15.0); WHITE BLOOD COUNT 7.5 x10^3/uL (4.8-10.8)
[2018-04-12 13:00] LABS: ALBUMIN 3.7 g/dL (3.2-5.5); BILIRUBIN,TOTAL 1.7 mg/dL (0.2-1.0); CALCIUM 8.9 mg/dL (8.5-10.3); CREATININE 0.6 mg/dL (0.6-1.2); MAGNESIUM 1.8 mg/dL (1.7-2.8); TOTAL PROTEIN 7.5 g/dL (6.7-8.2)
[2018-04-12] MEDS ORDERED: POTASSIUM BICARB 25 MEQ TABLET PO STA (13:18)
--- NOTE | 2018-04-12 13:59 | XRAY Report ---
Reason: dyspnea for few days Procedure Date: 04/12/2018 Accession Number: [id number] / [id number] Procedure: XR - Chest 2 View X-Ray CPT Code: 85673 FULL RESULT: EXAM: CHEST RADIOGRAPHY EXAM DATE: 04/12/2018 01:42 PM. CLINICAL HISTORY: Dyspnea for few days. COMPARISON: RIBS W/PA CHEST LT 07/15/2016. TECHNIQUE: 2 views. FINDINGS: Lungs/Pleura: No focal opacities evident. No pleural effusion. No pneumothorax. Normal volumes. Mediastinum: Heart and mediastinal contours are unremarkable. Other: None. IMPRESSION: No acute cardiopulmonary abnormality. RADIA
[2018-04-12] MEDS ORDERED: DEXAMETHASONE 10 MG/ML VIAL IVP STA (14:51)
[2018-04-12 17:42] VITALS: BP 148/82
== END 2018-04-12 17:49 | disposition home or self-care (01) ==
LOC: ED 12:07
DX: R06.00 Dyspnea, unspecified (principal); I50.23 Acute on chronic systolic (congestive) heart failure; J45.21 Mild intermittent asthma with (acute) exacerbation; I48.91 Unspecified atrial fibrillation; E78.00 Pure hypercholesterolemia, unspecified; E11.9 Type 2 diabetes mellitus without complications; I38 Endocarditis, valve unspecified; Z79.4 Long term (current) use of insulin; Z96.659 Presence of unspecified artificial knee joint; Z95.1 Presence of aortocoronary bypass graft; Z95.5 Presence of coronary angioplasty implant and graft
CPT/HCPCS: 36415; 71046; 80053; 83690; 83735; 83880; 84484; 85025; 93005; 94640; 96374; 96375; 99284; A9270

== ENCOUNTER 2018-04-23 08:00 | Outpatient (CLI) | payer MEDICARE, BC ==
[2018-04-23 17:08] LABS: CALCIUM 8.9 mg/dL (8.5-10.3); CREATININE 0.8 mg/dL (0.6-1.2)
== END 2018-04-23 08:01 | disposition home or self-care (01) ==
LOC: LAB.R 08:00
PROVIDERS: ATTEND Internal Medicine
DX: I50.9 Heart failure, unspecified (principal)
CPT/HCPCS: 80048

== ENCOUNTER 2018-09-11 13:59 | Outpatient (CLI) | payer MEDICARE, BC ==
--- NOTE | 2018-09-11 15:16 | XRAY Report ---
Reason: HAND PAIN,RIGHT Procedure Date: 09/11/2018 Accession Number: [id number] / [id number] Procedure: XR - Wrist 2 View RT CPT Code: FULL RESULT: EXAM: RIGHT WRIST RADIOGRAPHY 2 VIEWS RIGHT HAND RADIOGRAPHY 3 VIEWS EXAM DATE: 09/11/2018 02:56 PM. CLINICAL HISTORY: HAND PAIN,RIGHT. 2 days ago fell with hand outstretched. COMPARISON: WRIST 3 VIEW RT 10/31/2016 11:31 AM. FINDINGS: Mild first carpometacarpal osteoarthritis. Mild radiocarpal joint space narrowing. Moderate to severe first interphalangeal osteoarthritis. Mild second and third MCP osteoarthritis. Mild second and third DIP osteoarthritis. Bone cyst at the capitate. Triangular fibrocartilage chondrocalcinosis. Small chronic appearing calcifications seen at the ulnar proximal aspect of the fifth proximal phalanx. Chronic calcifications seen at the radial aspects of the second and third metacarpal heads. No evidence for acute fracture. No subluxation. No acute soft tissue findings. IMPRESSION: 1. No evidence for acute fracture. 2. Osteoarthritis. See above. RADIA The call report notification system was initiated by Dr. Taylor Mcintosh at 03:14 PM hrs on 09/11/2018. ADDENDUM: 09/11/18 15:20 The above findings were discussed with Steven Garcia by Dr. Taylor Mcintosh at 03:20 PM hrs on 09/11/2018.
--- NOTE | 2018-09-11 15:16 | XRAY Report ---
Reason: HAND PAIN,RIGHT Procedure Date: 09/11/2018 Accession Number: [id number] / [id number] Procedure: XR - Hand 3 View RT CPT Code: FULL RESULT: EXAM: RIGHT WRIST RADIOGRAPHY 2 VIEWS RIGHT HAND RADIOGRAPHY 3 VIEWS EXAM DATE: 09/11/2018 02:56 PM. CLINICAL HISTORY: HAND PAIN,RIGHT. 2 days ago fell with hand outstretched. COMPARISON: WRIST 3 VIEW RT 10/31/2016 11:31 AM. FINDINGS: Mild first carpometacarpal osteoarthritis. Mild radiocarpal joint space narrowing. Moderate to severe first interphalangeal osteoarthritis. Mild second and third MCP osteoarthritis. Mild second and third DIP osteoarthritis. Bone cyst at the capitate. Triangular fibrocartilage chondrocalcinosis. Small chronic appearing calcifications seen at the ulnar proximal aspect of the fifth proximal phalanx. Chronic calcifications seen at the radial aspects of the second and third metacarpal heads. No evidence for acute fracture. No subluxation. No acute soft tissue findings. IMPRESSION: 1. No evidence for acute fracture. 2. Osteoarthritis. See above. RADIA The call report notification system was initiated by Dr. Taylor Mcintosh at 03:14 PM hrs on 09/11/2018. ADDENDUM: 09/11/18 15:20 The above findings were discussed with Steven Garcia by Dr. Taylor Mcintosh at 03:20 PM hrs on 09/11/2018.
== END 2018-09-11 14:00 | disposition home or self-care (01) ==
LOC: DI 13:59
PROVIDERS: ATTEND Internal Medicine
DX: M18.11 Unilateral primary osteoarthritis of first carpometacarpal joint, right hand (principal); M19.041 Primary osteoarthritis, right hand; M19.031 Primary osteoarthritis, right wrist

== ENCOUNTER 2018-09-19 14:47 | Emergency (ER) | payer MEDICARE, BC ==
[2018-09-19 15:19] LABS: BASOPHILS # (AUTO) 0.1 10^3/uL (0.0-0.1); BASOPHILS % (AUTO) 1.1 %; EOSINOPHILS # (AUTO) 0.3 10^3/uL (0.0-0.7); EOSINOPHILS % (AUTO) 4.3 %; HGB - HEMOGLOBIN 13.4 g/dL (14.0-18.0); LYMPHOCYTES # (AUTO) 0.9 10^3/uL (1.5-3.5); LYMPHOCYTES % (AUTO) 11.8 %; MEAN CORPUSCULAR HEMOGLOBIN 29.5 pg (27.0-31.0); MEAN CORPUSCULAR HGB CONC 33.3 g/dL (32.0-36.0); MEAN CORPUSCULAR VOLUME 88.3 fL (80.0-94.0); MONOCYTES # (AUTO) 0.5 10^3/uL (0.0-1.0); MONOCYTES % (AUTO) 6.6 %; NEUTROPHILS # (AUTO) 5.7 10^3/uL (1.5-6.6); NEUTROPHILS % (AUTO) 76.2 %; PLT - PLATELET COUNT 301 10^3/uL (130-450); RED BLOOD COUNT 4.53 10^6/uL (4.70-6.10); RED CELL DISTRIBUTION WIDTH 17.2 % (12.0-15.0); WHITE BLOOD COUNT 7.5 x10^3/uL (4.8-10.8)
[2018-09-19 15:32] LABS: ALBUMIN 3.4 g/dL (3.2-5.5); BILIRUBIN,TOTAL 1.3 mg/dL (0.2-1.0); CALCIUM 8.9 mg/dL (8.5-10.3); CREATININE 0.8 mg/dL (0.6-1.2); TOTAL PROTEIN 6.7 g/dL (6.7-8.2)
--- NOTE | 2018-09-19 16:16 | XRAY Report ---
Reason: chest pain Procedure Date: 09/19/2018 Accession Number: [id number] / [id number] Procedure: XR - Chest 2 View X-Ray CPT Code: 01051 FULL RESULT: EXAM: CHEST RADIOGRAPHY EXAM DATE: 09/19/2018 03:53 PM. CLINICAL HISTORY: Chest pain. COMPARISON: Chest 2 view 04/12/2018 1:30 PM. TECHNIQUE: 2 views. FINDINGS: Lungs/Pleura: No focal opacities evident. No pleural effusion. No pneumothorax. Normal volumes. Mediastinum: Heart size is upper normal. Stable probable left pericardial fat pad. Mediastinal and hilar contours are stable and within expected limits. Other: None. IMPRESSION: No radiographic evidence of acute cardiopulmonary disease. RADIA
--- NOTE | 2018-09-19 19:00 | ED Physician Documentation ---
History of Present Illness - Stated complaint Stated Complaint: CP/ABD PX - Chief complaint Chief Complaint: Cardiac - History obtained from History obtained from: Patient - History of Present Illness Timing: Today Pain level max: 5 Pain level now: 0 - Additonal information Additional information: 78-year-old male scheduled for aortic valve replacement next week. He received a "double dose" of his iron infusion today. On the way home developed epigastric pain radiating to the chest. This is since resolved. Normal coronary angiogram 2 weeks ago. Nothing made the pain better or worse. Lasted approximately an hour. Has not had similar symptoms in the past. Has never received a double dose of his iron infusion Review of Systems Ten Systems: 10 systems reviewed and negative Constitutional: denies: Fever, Chills Ears: denies: Ear pain Nose: denies: Rhinorrhea / runny nose, Congestion Throat: denies: Sore throat Cardiac: denies: Palpitations Respiratory: denies: Dyspnea, Cough, Wheezing GI: denies: Vomiting Skin: denies: Rash Musculoskeletal: denies: Neck pain, Back pain PD PAST MEDICAL HISTORY - Past Medical History Cardiovascular: High cholesterol, Atrial fibrillation, Murmur, Valve disorder Respiratory: Asthma Endocrine/Autoimmune: Type 2 diabetes GI: GERD, Chronic constipation : None HEENT: None Psych: None Musculoskeletal: Other Derm: Other - Past Surgical History Past Surgical History: Yes General: Colonoscopy, EGD Ortho: Knee replacement, Rotator cuff repair, Carpal Tunnel surgery, Spine surgery Cardiovascular: CABG, Coronary stent HEENT: Tonsil/Adenoidectomy Derm: Skin cancer surgery - Present Medications Home Medications: Ambulatory Orders Medication Instructions Recorded Confirmed Insulin Aspart (Vial) [NovoLOG] 0 - 20 units SUBQ TIDWM 03/06/13 09/13/18 Insulin Detemir [Levemir] 70 unit SQ BID 03/06/13 09/13/18 Ramipril [Altace] 10 mg PO DAILY 03/06/13 09/13/18 Tramadol HCl [Ultram ER] 300 mg PO QPM 03/06/13 09/13/18 metFORMIN [Glucophage] 1,000 mg PO BIDWM 03/06/13 09/13/18 Calcium Carbonate/Vitamin D3 1 each PO DAILY 04/16/13 09/13/18 [Calcium 500 + Vit D 200 Caplet] Hydrochlorothiazide 12.5 mg PO DAILY 04/16/13 09/13/18 Metoprolol Succinate [Toprol Xl] 25 mg PO BID 04/16/13 09/13/18 Multivitamin [Multivitamins] 1 each PO DAILY 04/16/13 09/13/18 Pregabalin [Lyrica] 200 - 300 mg PO BID 04/16/13 09/13/18 Glucosamine/Chondroitin Sulf A 1 cap PO BID 07/31/14 09/13/18 [Glucosamine Chondroitin Cap] Atorvastatin Calcium 80 mg PO QPM 02/26/15 09/13/18 Dabigatran Etexilate Mesylate 150 mg PO BID 02/26/15 09/13/18 [Pradaxa] Levothyroxine [Synthroid] 75 mcg PO DAILY 09/03/15 09/13/18 Albuterol Sulf [Ventolin Hfa 2 - 3 puffs INH Q4HR PRN #1 inhaler 04/12/18 09/13/18 Inhaler] Amlodipine Besylate [Norvasc] 1 tab PO DAILY 04/12/18 09/13/18 Dexamethasone [Decadron] 4 mg PO DAILY #5 tablet 04/12/18 09/13/18 Esomeprazole Magnesium 1 tab PO DAILY 04/12/18 09/13/18 Fluticasone Propionate [Flovent 1 puffs INH BID 04/12/18 09/13/18 Diskus] Furosemide [Lasix] 20 mg PO DAILY #30 tablet 04/12/18 09/13/18 Iron,Carbonyl/Ascorbic Acid [Fe C 1 tab PO DAILY 04/12/18 09/13/18 Tablet] Isosorbide Mononitrate ER [Imdur] 1 tab PO DAILY 04/12/18 09/13/18 Ciprofloxacin HCl [Cipro] 500 mg PO BID 04/24/18 09/13/18 - Allergies Allergies/Adverse Reactions: Allergies Allergy/AdvReac Type Severity Reaction Status Date / Time codeine [Codeine] Allergy Severe Emesis Verified 09/19/18 14:57 - Social History Does the pt smoke?: No Smoking Status: Never smoker Does the pt drink ETOH?: No Does the pt have substance abuse?: No - Immunizations Immunizations are current?: Yes PD ED PE NORMAL - Vitals Vital signs reviewed: Yes - General General: Alert and oriented X 3, No acute distress, Well developed/nourished - HEENT HEENT: PERRL, Moist mucous membranes - Neck Neck: Supple, no meningeal sign - Cardiac Cardiac: RRR, Strong equal pulses - Respiratory Respiratory: No respiratory distress, Clear bilaterally - Abdomen Abdomen: Soft, Non tender, Non distended - Derm Derm: Warm and dry - Extremities Extremities: No calf tenderness / cord - Neuro Neuro: Alert and oriented X 3 - Psych Psych: Normal mood, Normal affect Results - Vitals Vitals: Vital Signs - 24 hr 09/19/18 09/19/18 09/19/18 14:53 16:33 18:30 Temperature 36.7 C 36.5 C Heart Rate 69 74 Respiratory 18 20 Rate Blood Pressure 105/65 113/56 L Blood Pressure 140/81 H [Left] O2 Saturation 100 95 09/19/18 09/19/18 18:40 19:00 Temperature Heart Rate 72 70 Respiratory 18 16 Rate Blood Pressure 140/81 H 138/57 H Blood Pressure [Left] O2 Saturation 97 96 Oxygen O2 Source Room air - EKG (time done) 1447 Rate: Rate (enter#) (65) Rhythm: Atrial fibrillation [place]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) Intervals: RBBB Ischemia: Normal ST segments - Labs Labs: Laboratory Tests 09/19/18 09/19/18 09/19/18 15:09 15:09 15:09 WBC 7.5 RBC 4.53 L Hgb 13.4 L Hct 40.1 L MCV 88.3 MCH 29.5 MCHC 33.3 RDW 17.2 H Plt Count 301 MPV 8.0 Neut # (Auto) 5.7 Lymph # (Auto) 0.9 L [place] # (Auto) 0.5 Eos # (Auto) 0.3 Baso # (Auto) 0.1 Absolute Nucleated RBC 0.01 Nucleated RBC % 0.1 Sodium 137 Potassium 4.7 Chloride 102 Carbon Dioxide 25 Anion Gap 10.0 BUN 21 H Creatinine 0.8 Estimated GFR (MDRD) 94 Glucose 195 H Calcium 8.9 Total Bilirubin 1.3 H AST 27 ALT 22 Alkaline Phosphatase 50 Troponin I < 0.04 Total Protein 6.7 Albumin 3.4 Globulin 3.3 Albumin/Globulin Ratio 1.0 Lipase 27 - Rads (name of study) cxr Radiology: Prelim report reviewed, EMP read contemporaneously, See rad report (No acute disease) PD MEDICAL DECISION MAKING - ED course Complexity details: reviewed results, re-evaluated patient, considered differential (No ST elevation [place], no aortic dissection, no PE, no tension pneumothorax, no aortic aneurysm), d/w patient ED course: 78-year-old male with epigastric pain after receiving an iron infusion. Likely related to the infusion. Normal coronary angiogram approximately 2 weeks ago. Unlikely to be acute coronary syndrome. Symptoms resolved. No acute findings on EKG or laboratory testing. Will follow up with his doctor for further care. Patient counseled regarding signs and symptoms for which I believe and urgent re-evaluation would be necessary. Patient with good understanding of and agreement to plan and is comfortable going home at this time This document was made in part using voice recognition software. While efforts are made to proofread this document, sound alike and grammatical errors may occur. Departure - Departure Disposition: 01 Home, Self Care Clinical Impression: Abdominal pain Qualifiers: Abdominal location: epigastric Qualified Code(s): R10.13 - Epigastric pain Condition: Good Instructions: ED Abdominal Pain Unkn Cause Male Follow-Up: your,doctor in 1 week. [Other] Comments: Your tests are normal today. Return if you worsen. This is likely a reaction to the iron infusion. Discharge Date/Time: 09/19/18 19:12
[2018-09-19 19:19] VITALS: BP 138/57
== END 2018-09-19 19:12 | disposition home or self-care (01) ==
LOC: ED 14:47
DX: R10.13 Epigastric pain (principal); I48.91 Unspecified atrial fibrillation; I45.2 Bifascicular block; E78.00 Pure hypercholesterolemia, unspecified; E11.9 Type 2 diabetes mellitus without complications; Z96.659 Presence of unspecified artificial knee joint; Z95.2 Presence of prosthetic heart valve; Z95.1 Presence of aortocoronary bypass graft; Z95.5 Presence of coronary angioplasty implant and graft; Z79.4 Long term (current) use of insulin
CPT/HCPCS: 36415; 71046; 80053; 83690; 84484; 85025; 93005; 99283

== ENCOUNTER 2018-11-15 10:48 | Outpatient (CLI) | payer MEDICARE, BC ==
--- NOTE | 2018-11-15 17:08 | Nuclear Medicine Report ---
Reason: OSTEOBLASTOMA OF BONE Procedure Date: 11/15/2018 Accession Number: [id number] / [id number] Procedure: NM - Bone Whole Body CPT Code: FULL RESULT: EXAM: BONE SCAN EXAM DATE: 11/15/2018 02:56 PM. CLINICAL HISTORY: OSTEOBLASTOMA OF BONE. CT angiogram from 10/28/2018 showed circumscribed areas of lucency in several bones including the inferior right scapula, left sided ribs, and bilateral iliac bones. Additional history of right Charcot foot. COMPARISON: CT ANGIOGRAM CHEST W CONTRAST 10/28/2018 11:[address] ANGIOGRAM CHEST W C 10/28/2018 10:[address] ANGIOGRAM ABDOMEN PELVIS W CONTRAST 10/28/2018 10:42 AM. TECHNIQUE: Following the intravenous administration of 32.5 mCi of technetium 99m MDP and an appropriate delay, a whole-body scan was performed in anterior and posterior projections. Site-specific spot views of the region of interest were obtained in various projections. FINDINGS: Exam Quality: Normal overall osseous radiotracer uptake. Physiological tracer uptake in bilateral collecting systems. Skull: No focal uptake. Thorax: No focal lesions in ribs or sternum. Pelvis: No focal lesions. Spine: There is linear increased uptake at several levels most notably L2-L3 corresponding with changes of degenerative disk disease on reference imaging. Extremities: There is a right knee prosthesis. There is intensely increased uptake in medial compartment of the left knee. There is intensely increased uptake in both mid feet. Asymmetrically increased uptake in the left acromioclavicular joint is most consistent with degenerative etiology. 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 Note, bone scan is considered less sensitive for detection of lytic bone disease. RADIA
== END 2018-11-15 10:49 | disposition home or self-care (01) ==
LOC: DI 10:48
PROVIDERS: ATTEND Family Medicine
DX: D16.9 Benign neoplasm of bone and articular cartilage, unspecified (principal)
CPT/HCPCS: 78306

== ENCOUNTER 2019-02-11 15:03 | Outpatient (CLI) | payer MEDICARE, BC ==
--- NOTE | 2019-02-11 15:26 | XRAY Report ---
Reason: COUGH,CHF,REACTIVE AIRWAY DISEASE Procedure Date: 02/11/2019 Accession Number: [id number] / [id number] Procedure: WCP - Chest 2 View X-Ray CPT Code: 98655 FULL RESULT: EXAM: CHEST RADIOGRAPHY EXAM DATE: 02/11/2019 03:17 PM. CLINICAL HISTORY: COUGH,CHF,REACTIVE AIRWAY DISEASE. COMPARISON: CHEST 2 VIEW 09/19/2018 3:47 PM. TECHNIQUE: 2 views. FINDINGS: Lungs/Pleura: No focal opacities evident. No pleural effusion. No pneumothorax. Normal volumes. Mediastinum: Heart and mediastinal contours are unremarkable. Cardiac valve replacement. Other: Mild thoracic spine dextroscoliosis. IMPRESSION: No acute cardiopulmonary disease seen. RADIA
== END 2019-02-11 15:04 | disposition home or self-care (01) ==
LOC: DI.WCP 15:03
PROVIDERS: ATTEND Family Medicine
DX: R05 Cough (principal); I50.9 Heart failure, unspecified; J45.909 Unspecified asthma, uncomplicated
CPT/HCPCS: 71046

== ENCOUNTER 2019-03-10 14:38 | Outpatient (CLI) | payer MEDICARE, BC ==
--- NOTE | 2019-03-11 10:46 | XRAY Report ---
Reason: INFECTED L HALLUX Procedure Date: 03/10/2019 Accession Number: [id number] / [id number] Procedure: XR - Toe(s) LT CPT Code: FULL RESULT: EXAM: LEFT TOE RADIOGRAPHY EXAM DATE: 03/10/2019 03:09 PM. CLINICAL HISTORY: INFECTED L HALLUX. COMPARISON: None. TECHNIQUE: 3 views. FINDINGS: Bones: Base of left great toe distal phalanx appears demineralized. There are potential erosive changes along the lateral aspect. Distal aspect of left great toe distal phalanx has straight, oblique margins, question prior partial resection. Prior fracture with multiple fragmented ossific densities measuring 2-3 mm in size long the volar and medial aspects, including medial base along great toe interphalangeal joint. Joints: Normal. No subluxations. Soft Tissues: Diffuse left great toe soft tissue swelling with potential soft tissue air immediately adjacent to distal aspect of distal phalanx. IMPRESSION: 1. Multiple abnormalities raise concern for osteomyelitis with fragmentation of left great toe distal phalanx. Soft tissue lucencies could be related to developing gas gangrene or Mach band artifact from overlying toenail and bandages. Consider MRI with and without contrast if clinically warranted. [facility] The above call report findings were discussed with Monie Esquivel by Dr. Andres Reddy at 10:37 AM on 03/11/2019.
== END 2019-03-10 14:39 | disposition home or self-care (01) ==
LOC: DI 14:38
PROVIDERS: ATTEND Podiatrist
DX: M20.5X2 Other deformities of toe(s) (acquired), left foot (principal); L08.9 Local infection of the skin and subcutaneous tissue, unspecified
CPT/HCPCS: 73660

== ENCOUNTER 2019-03-14 06:03 | Day surgery (SDC) | payer MEDICARE, BC ==
[2019-03-14] MEDS ORDERED: LACTATED RINGERS 1,000 ML IV ONE (06:45)
[2019-03-14] MEDS ORDERED: CIPROFLOXACIN 400 MG/200 ML 200 ML IV ONE (06:48)
[2019-03-14] MEDS ORDERED: BUPIVACAINE 0.5% PF 10 ML VIAL ONE (07:05)
[2019-03-14] MEDS ORDERED: LIDOCAINE-MPF 1% 30 ML VIAL ONE (07:06)
--- NOTE | 2019-03-14 07:08 | ANESTHESIA ---
Pre-Anesthesia VS, & Labs - Diagnosis osteomyelitis L great toe - Procedure L partial amputation great toe Height 6 ft 1 in Body Mass Index 33.0 Home Medications and Allergies Insulin Aspart (Vial) [NovoLOG] 0 - 20 units SUBQ TIDWM 03/06/13 Insulin Detemir [Levemir] 70 unit SQ BID 03/06/13 Ramipril [Altace] 10 mg PO DAILY 03/06/13 Tramadol HCl [Ultram ER] 300 mg PO QPM 03/06/13 metFORMIN [Glucophage] 1,000 mg PO BIDWM 03/06/13 Calcium Carbonate/Vitamin D3 [Calcium 500 + Vit D 200 Caplet] 1 each PO DAILY 04/16/13 Hydrochlorothiazide 12.5 mg PO DAILY 04/16/13 Metoprolol Succinate [Toprol Xl] 25 mg PO BID 04/16/13 Multivitamin [Multivitamins] 1 each PO DAILY 04/16/13 Pregabalin [Lyrica] 200 - 300 mg PO BID 04/16/13 Glucosamine/Chondroitin Sulf A [Glucosamine Chondroitin Cap] 1 cap PO BID 07/31/14 Atorvastatin Calcium 80 mg PO QPM 02/26/15 Dabigatran Etexilate Mesylate [Pradaxa] 150 mg PO BID 02/26/15 Levothyroxine [Synthroid] 75 mcg PO DAILY 09/03/15 Amlodipine Besylate [Norvasc] 1 tab PO DAILY 04/12/18 Esomeprazole Magnesium 1 tab PO DAILY 04/12/18 Fluticasone Propionate [Flovent Diskus] 1 puffs INH BID 04/12/18 Iron,Carbonyl/Ascorbic Acid [Fe C Tablet] 1 tab PO DAILY 04/12/18 Isosorbide Mononitrate ER [Imdur] 1 tab PO DAILY 04/12/18 Ciprofloxacin HCl [Cipro] 500 mg PO BID 04/24/18 Allergies/Adverse Reactions: Allergies Allergy/AdvReac Type Severity Reaction Status Date / Time codeine [Codeine] Allergy Severe Emesis Verified 09/19/18 14:57 Anes History & Medical History - Medical History Cardiovascular: reports: High cholesterol, Atrial fibrillation, Murmur, Valve disorder Pulmonary: reports: Asthma Gastrointestinal: reports: GERD, Chronic constipation Urinary: reports: None Neuro: reports: CVA, Peripheral neuropathy Musculoskeletal: reports: Other Endocrine/Autoimmune: reports: Type 2 diabetes Skin: reports: Other Smoking Status: Never smoker - Surgical History General: Colonoscopy, EGD Eyes Ears Nose Throat (EENT): Tonsil/Adenoidectomy Cardiothoracic: CABG, Coronary stent Orthopedic: Knee replacement, Rotator cuff repair, Carpal Tunnel surgery, Spine surgery Dermatologic: Skin cancer surgery Exam General: Alert, Oriented x3, Cooperative Mouth Openin Fingerbreadth Neck Mobility: Normal Mallampati classification: II Thyromental Distance: 4-6 cm Respiratory: Lungs clear, Decreased breath sounds Cardiovascular: Other (AF) Neurological: Normal speech Mental/Cognitive Status: Alert/Oriented X3, Normal for patient Cognitive Status: Within normal limits Plan Anesthesia Type: MAC (w/local at site in pre-op holding) Consent for Procedure(s) Verified and Reviewed: Yes Code Status: Attempt Resuscitation ASA classification: 3-Severe systemic disease Is this case an emergency?: No
[2019-03-14] MEDS ORDERED: ONDANSETRON 4 MG/2 ML VIAL IVP PRN (07:23)
[2019-03-14] MEDS ORDERED: HYDROcod/ACETAM 5/325 MG TABLET PO PRN (07:23)
--- NOTE | 2019-03-14 07:27 | OPERATIVE REPORT ---
Operative Report - General Procedure Date: 03/14/19 Planned Procedure: partial amputation left great toe Pre-Op Diagnosis: osteomyelitis left great toe Procedure Performed: partial amputation left great toe Post Op Diagnosis: same - Procedure Note Primary Surgeon: shon Anesthesia Provider: local/mac Anesthesia Technique: Local Estimated Blood Loss (mL): 5
[2019-03-14 08:52] VITALS: BP 115/97
--- NOTE | 2019-03-16 02:49 | OPERATIVE REPORT ---
DATE OF SERVICE: 03/14/2019 Physician: Blaine Freeman MD PREOPERATIVE DIAGNOSIS: Left great toe diabetic ulceration and osteomyelitis. POSTOPERATIVE DIAGNOSIS: Left great toe diabetic ulceration and osteomyelitis. PROCEDURE PERFORMED: Partial amputation of the left great toe at the level of the mid proximal phala nx. OPERATING SURGEON: Blaine Freeman MD ANESTHESIA: MAC and local, Juanito Tomlinson. INDICATIONS FOR SURGERY: Patient is a 78-year-old, diabetic male who, over the prior few weeks, has developed open ulceration and exposed bone at the level of his distal phalanx of left great toe. Thi s has come about without trauma, but with a large open wound and drainage and foul smelling odor, bot h of which have been monitored and detected by the semiconductor packages sealer attending to him, and he was sent to mo for amputation of his toe. FINDINGS AT SURGERY: The patient had an extremely foul-smelling toe on removal of dressings. He had a transverse gap in his toe right through the nail bed, exposing the distal phalanx of the toe direc tly. There was not gross purulence evident and there was no bleeding. DESCRIPTION OF OPERATIVE PROCEDURE: Patient was taken to the operating room, given a light MAC anest hetic and given a digital block anesthetic with 1% lidocaine infiltrating around the level of the mid foot and then also distally, ultimately performing a midfoot block and a digital block, with total vo lume used approximately 15-16 mL of 1% lidocaine. Once the patient was comfortable, the procedure mo miesha forward with an Esmarch wrapping to function as a tourniquet and then mapped out a dorsal and aracelis ntar flap wounds created directly through skin and subcutaneous tissue, taking these directly down to bone on both the dorsal and plantar surfaces, and then dissecting to the level of the PIP joint, rem oving the toe as a specimen. From this point, the bone was then debrided back to the mid proximal ph alanx level, so that the flaps could nicely be approximated without tension and the Esmarch was remov ed. There was very little venous bleeding and no significant arterial bleeding. The patient's plant ar nerve bundles were isolated and dissected proximal to the osteotomy site of the bone and the flaps were closed with interrupted nylon suture. Sterile dressings were applied. The patient was taken t o the recovery room in stable condition, where a postoperative shoe was fitted. ESTIMATED BLOOD LOSS: Minimal. COMPLICATIONS: None. COUNTS: Sponge and needle counts correct. TD: 03/15/2019 20:30
== END 2019-03-14 06:04 | disposition home or self-care (01) ==
LOC: SDS 06:03
PROVIDERS: ATTEND Orthopaedic Surgery
PROC: 0QBR0ZZ Excision of Left Toe Phalanx, Open Approach (ICD-10-PCS; principal; 2019-03-14 07:30)
DX: E11.69 Type 2 diabetes mellitus with other specified complication (principal); M86.172 Other acute osteomyelitis, left ankle and foot; E11.621 Type 2 diabetes mellitus with foot ulcer; L97.526 Non-pressure chronic ulcer of other part of left foot with bone involvement without evidence of necrosis; J44.9 Chronic obstructive pulmonary disease, unspecified; E11.42 Type 2 diabetes mellitus with diabetic polyneuropathy; I50.9 Heart failure, unspecified; E03.9 Hypothyroidism, unspecified; I48.91 Unspecified atrial fibrillation; K21.9 Gastro-esophageal reflux disease without esophagitis; K59.09 Other constipation; Z96.651 Presence of right artificial knee joint; Z79.4 Long term (current) use of insulin; Z85.820 Personal history of malignant melanoma of skin; Z95.2 Presence of prosthetic heart valve; Z86.73 Personal history of transient ischemic attack (TIA), and cerebral infarction without residual deficits; Z95.1 Presence of aortocoronary bypass graft
CPT/HCPCS: 28160; J7120

== ENCOUNTER 2019-05-23 16:21 | Emergency (ER) | payer MEDICARE, BC ==
[2019-05-23] MEDS ORDERED: TRANEXAMIC ACID 1,000 MG/10 ML VIAL NAS STA (17:07)
--- NOTE | 2019-05-23 18:00 | ED Physician Documentation ---
PD HPI WOUND RECHECK - Stated complaint Stated Complaint: L 2ND TOE WOUND BLEEDING - Chief complaint Chief Complaint: Wound - Histroy obtained from History obtained from: Patient, Friend - History of Present Illness Location: Other (L 2nd toe) Timing - onset: Yesterday Severity Comments: moderate bleedig today Associated symptoms: Other (bleeding is present). No: Fever, Redness, Swelling, Drainage, Pain Recently seen: Surgery (yesterday for L 2nd toe amputation) - Treatment prior to arrival Treatment prior to arrival: pressure dressing was already applied post surgery and is bleeding through the dressing Review of Systems Ten Systems: 10 systems reviewed and negative Constitutional: denies: Fever Cardiac: reports: Reviewed and negative Respiratory: reports: Reviewed and negative GI: reports: Reviewed and negative : reports: Reviewed and negative Skin: reports: Other (bleeding) Musculoskeletal: reports: Reviewed and negative Neurologic: reports: Reviewed and negative PD PAST MEDICAL HISTORY - Past Medical History Past Medical History: Yes Cardiovascular: High cholesterol, Atrial fibrillation, Murmur, Valve disorder Respiratory: Asthma Neuro: CVA, Peripheral neuropathy Endocrine/Autoimmune: Type 2 diabetes GI: GERD, Chronic constipation : None HEENT: None Psych: None Musculoskeletal: Other Derm: Other drug resistant infections, Other - Past Surgical History Past Surgical History: Yes General: Colonoscopy, EGD Ortho: Knee replacement, Rotator cuff repair, Carpal Tunnel surgery, Spine surgery, Amputation Cardiovascular: CABG, Coronary stent HEENT: Tonsil/Adenoidectomy Derm: Skin cancer surgery - Present Medications Home Medications: Ambulatory Orders Medication Instructions Recorded Confirmed Insulin Aspart (Vial) [NovoLOG] 0 - 20 units SUBQ TIDWM 03/06/13 04/24/19 Insulin Detemir [Levemir] 70 unit SQ BID 03/06/13 04/24/19 Ramipril [Altace] 10 mg PO DAILY 03/06/13 04/24/19 metFORMIN [Glucophage] 1,000 mg PO BIDWM 03/06/13 03/14/19 Calcium Carbonate/Vitamin D3 1 each PO DAILY 04/16/13 04/24/19 [Calcium 500 + Vit D 200 Caplet] Hydrochlorothiazide 12.5 mg PO DAILY 04/16/13 04/24/19 Metoprolol Succinate [Toprol Xl] 25 mg PO BID 04/16/13 04/24/19 Multivitamin [Multivitamins] 1 each PO DAILY 04/16/13 04/24/19 Pregabalin [Lyrica] 200 - 300 mg PO BID 04/16/13 04/24/19 Glucosamine/Chondroitin Sulf A 1 cap PO BID 07/31/14 04/24/19 [Glucosamine Chondroitin Cap] Atorvastatin Calcium 80 mg PO QPM 02/26/15 04/24/19 Dabigatran Etexilate Mesylate 150 mg PO BID 02/26/15 04/24/19 [Pradaxa] Levothyroxine [Synthroid] 75 mcg PO DAILY 09/03/15 04/24/19 Albuterol Sulf [Ventolin Hfa 2 - 3 puffs INH Q4HR PRN #1 inhaler 04/12/18 Inhaler] Amlodipine Besylate [Norvasc] 1 tab PO DAILY 04/12/18 04/24/19 Esomeprazole Magnesium 1 tab PO DAILY 04/12/18 04/24/19 Fluticasone Propionate [Flovent 1 puffs INH BID 04/12/18 04/24/19 Diskus] Furosemide [Lasix] 20 mg PO DAILY #30 tablet 04/12/18 04/24/19 Iron,Carbonyl/Ascorbic Acid [Fe C 1 tab PO DAILY 04/12/18 04/24/19 Tablet] Isosorbide Mononitrate ER [Imdur] 1 tab PO DAILY 04/12/18 04/24/19 dexAMETHasone [Decadron] 4 mg PO DAILY #5 tablet 04/12/18 04/24/19 Amoxicillin/Potassium Clav 1 tab PO DAILY 04/24/19 04/24/19 [Amox-Clav 875-125 mg Tablet] - Allergies Allergies/Adverse Reactions: Allergies Allergy/AdvReac Type Severity Reaction Status Date / Time codeine [Codeine] Allergy Severe Emesis Verified 05/23/19 16:40 - Social History Does the pt smoke?: No Smoking Status: Never smoker Does the pt drink ETOH?: No Does the pt have substance abuse?: No - Immunizations Immunizations are current?: Yes PD ED PE NORMAL - Vitals Vital signs reviewed: Yes - General General: Alert and oriented X 3, No acute distress, Well developed/nourished - HEENT HEENT: Atraumatic - Neck Neck: Supple, no meningeal sign - Cardiac Cardiac: RRR - Respiratory Respiratory: No respiratory distress - Abdomen Abdomen: Soft, Non distended - Male Male : Deferred - Rectal Rectal: Deferred - Derm Derm: Normal color, Warm and dry, Other (incision site between 1st and 3rd toe at amputation site is clean dry and intact with mild bleeding, no wound dehiscence) - Extremities Extremities: Other (amputated 2nd toe with overlyng incision site in the webbing sutures in place ) - Neuro Neuro: Alert and oriented X 3, No motor deficit, No sensory deficit Eye Opening: Spontaneous Motor: Obeys Commands Verbal: Oriented GCS Score: 15 - Psych Psych: Normal mood, Normal affect Results - Vitals Vitals: Vital Signs - 24 hr 05/23/19 05/23/19 16:37 18:11 Temperature 36.3 C L 36.5 C Heart Rate 85 77 Respiratory 20 18 Rate Blood Pressure 124/68 116/56 L O2 Saturation 98 97 Oxygen O2 Source Room air PD MEDICAL DECISION MAKING - ED course Complexity details: reviewed old records, re-evaluated patient, considered differential, d/w patient ED course: ddx- bleeding incision site, infected wound, 79 y/o M with hx and exam as documented, mild bleeding at toe amputation site, but no wound dehiscence. Applied gauze soaked with TXA and a pressure dressing which resolved his bleeding. Pt is stable for outpt f/u Departure - Departure Disposition: 01 Home, Self Care Clinical Impression: Postoperative bleeding from incision Condition: Stable Record reviewed to determine appropriate education?: Yes Instructions: ED Wound Check Post Op Bleeding Follow-Up: your, doctor [Other] Comments: You were evaluated in the ED today for your foot wound which was bleeding. A topical medication called TXA was applied. The wound had no further bleeding and is stable for management at home. Restart your Pradaxa tomorrow if the bleeding has stopped. Return to the ED if bleeding becomes severe or worsening. Discharge Date/Time: 05/23/19 18:34
[2019-05-23 18:11] VITALS: BP 116/56
== END 2019-05-23 18:34 | disposition home or self-care (01) ==
LOC: ED 16:21
DX: L76.22 Postprocedural hemorrhage of skin and subcutaneous tissue following other procedure (principal); Y83.8 Other surgical procedures as the cause of abnormal reaction of the patient, or of later complication, without mention of misadventure at the time of the procedure; Z89.422 Acquired absence of other left toe(s); E11.42 Type 2 diabetes mellitus with diabetic polyneuropathy; Z79.4 Long term (current) use of insulin
CPT/HCPCS: 99281; 99282

== ENCOUNTER 2020-02-17 08:00 | Outpatient (CLI) | payer MEDICARE, BC | END 2020-02-17 23:59 | disposition home or self-care (01) | LOC: LAB.R 08:00 | PROVIDERS: ATTEND Family Medicine | DX: R31.9 Hematuria, unspecified (principal) | CPT/HCPCS: 81002; 87086 ==

== ENCOUNTER 2020-02-18 14:36 | Outpatient (CLI) | payer MEDICARE, BC ==
[2020-02-18 14:48] LABS: BASOPHILS % (AUTO) 0.5 %; EOSINOPHILS # (AUTO) 0.3 10^3/uL (0.0-0.7); EOSINOPHILS % (AUTO) 3.6 %; HGB - HEMOGLOBIN 13.1 g/dL (14.0-18.0); LYMPHOCYTES # (AUTO) 1.1 10^3/uL (1.5-3.5); LYMPHOCYTES % (AUTO) 13.2 %; MEAN CORPUSCULAR HEMOGLOBIN 30.6 pg (27.0-31.0); MEAN CORPUSCULAR HGB CONC 33.1 g/dL (32.0-36.0); MEAN CORPUSCULAR VOLUME 92.5 fL (80.0-94.0); MEAN PLATELET VOLUME 9.8 fL (7.4-11.4); MONOCYTES # (AUTO) 0.6 10^3/uL (0.0-1.0); NEUTROPHILS # (AUTO) 6.1 10^3/uL (1.5-6.6); NEUTROPHILS % (AUTO) 75.5 %; PLT - PLATELET COUNT 262 10^3/uL (130-450); RED BLOOD COUNT 4.28 10^6/uL (4.70-6.10); RED CELL DISTRIBUTION WIDTH 14.5 % (12.0-15.0); WHITE BLOOD COUNT 8.1 x10^3/uL (4.8-10.8)
[2020-02-18 15:07] LABS: ALBUMIN 4.1 g/dL (3.2-5.5); ALBUMIN/GLOBULIN RATIO 1.1 (1.0-2.2); ALKALINE PHOSPHATASE 55 IU/L (42-121); ALT ALANINE AMINOTRANSFERASE 21 IU/L (10-60); AST ASPARTATE AMINOTRANSFERASE 18 IU/L (10-42); BUN - BLOOD UREA NITROGEN 20 mg/dL (6-20); CALCIUM 9.1 mg/dL (8.5-10.3); CARBON DIOXIDE - CO2 30 mmol/L (21-32); CHLORIDE 97 mmol/L (101-111); CHOL/HDL RATIO 3.2 (<5.0); CHOLESTEROL 116 mg/dL; CREATININE 0.8 mg/dL (0.6-1.2); GLUCOSE 242 mg/dL (70-100); HDL CHOLESTEROL 36 mg/dL; LDL CHOLESTEROL,CALCULATED 69 mg/dL; LDL/HDL RATIO 1.9 (<3.6); SODIUM 138 mmol/L (135-145); TOTAL PROTEIN 7.7 g/dL (6.7-8.2); VLDL CHOLESTEROL 11 mg/dL
[2020-02-18 15:37] LABS: HB2 TOTAL 14.1 g/dL; HEMOGLOBIN A1C 1.45 g/dL; HEMOGLOBIN A1C % 11.6 % (4.6-6.2)
== END 2020-02-18 14:37 | disposition home or self-care (01) ==
LOC: LAB 14:36
PROVIDERS: ATTEND Family Medicine
DX: E11.29 Type 2 diabetes mellitus with other diabetic kidney complication (principal); I48.91 Unspecified atrial fibrillation; Z95.2 Presence of prosthetic heart valve; I50.9 Heart failure, unspecified
CPT/HCPCS: 36415; 80053; 80061; 83036; 83721; 84443; 85025

== ENCOUNTER 2020-05-21 17:36 | Emergency (ER) | payer MEDICARE, BC ==
--- NOTE | 2020-05-21 17:55 | ED Physician Documentation ---
PD HPI DYSPNEA - Stated complaint Stated Complaint: SOA/BLOOD IN URINE - Chief complaint Chief Complaint: UTI - History obtained from History obtained from: Patient - Additional information Additional information: 80-year-old gentleman with history of paroxysmal atrial fibrillation, asthma, and diabetes had hematuria about a month ago which resolved after a course of antibiotics. This recurred 2 nights ago and actually had some small clots in his urine. Went to his doctor's office today and while there had some shortness of breath and was referred here for further evaluation and treatment. Denies chest pain, wheezing, pedal edema, cough, fevers. Did have some wheezing earlier in the day though. Anticoagulated on Pradaxa. Review of Systems Constitutional: denies: Fever, Chills Cardiac: denies: Chest pain / pressure, Palpitations, Pedal edema, Calf pain Respiratory: denies: Cough, Hemoptysis GI: denies: Abdominal Pain PD PAST MEDICAL HISTORY - Past Medical History Cardiovascular: High cholesterol, Atrial fibrillation, Murmur, Valve disorder Respiratory: Asthma Neuro: CVA, Peripheral neuropathy Endocrine/Autoimmune: Type 2 diabetes GI: GERD, Chronic constipation : None HEENT: None Psych: None Musculoskeletal: Other Derm: Other drug resistant infections, Other - Past Surgical History Past Surgical History: Yes General: Colonoscopy, EGD Ortho: Knee replacement, Rotator cuff repair, Carpal Tunnel surgery, Spine surgery, Amputation Cardiovascular: CABG, Coronary stent HEENT: Tonsil/Adenoidectomy Derm: Skin cancer surgery - Present Medications Home Medications: Ambulatory Orders Medication Instructions Recorded Confirmed Insulin Aspart (Vial) [NovoLOG] 0 - 26 units SUBQ TIDWM 03/06/13 05/21/20 Insulin Detemir [Levemir] 70 unit SQ BID 03/06/13 05/21/20 Ramipril [Altace] 5 mg PO DAILY 03/06/13 05/21/20 Metoprolol Succinate [Toprol Xl] 25 mg PO BID 04/16/13 05/21/20 Multivitamin [Multivitamins] 1 each PO DAILY 04/16/13 05/21/20 Pregabalin [Lyrica] 200 - 300 mg PO BID 04/16/13 05/21/20 Atorvastatin Calcium 80 mg PO QPM 02/26/15 05/21/20 Dabigatran Etexilate Mesylate 150 mg PO BID 02/26/15 05/21/20 [Pradaxa] Albuterol Sulf [Ventolin Hfa 2 - 3 puffs INH Q4HR PRN #1 inhaler 04/12/18 05/21/20 Inhaler] Furosemide [Lasix] 20 mg PO DAILY #30 tablet 04/12/18 06/17/19 Isosorbide Mononitrate ER [Imdur] 1 tab PO DAILY 04/12/18 05/21/20 Fluticasone/Vilanterol [Breo 1 each IH DAILY 06/25/19 05/21/20 Ellipta 100-25 Mcg INH] Ipratropium/Albuterol [Combivent 4 gm IH DAILY 06/25/19 05/21/20 Respimat] Metformin HCl [Metformin HCl ER] 500 mg PO BID 06/25/19 05/21/20 Tramadol HCl [Ultram ER] 300 mg PO DAILY 06/25/19 05/21/20 Ciprofloxacin HCl [Cipro] 500 mg PO BID #20 tablet 05/21/20 - Allergies Allergies/Adverse Reactions: Allergies Allergy/AdvReac Type Severity Reaction Status Date / Time codeine [Codeine] Allergy Severe Emesis Verified 06/17/19 14:15 - Social History Does the pt smoke?: No Smoking Status: Never smoker Does the pt drink ETOH?: No Does the pt have substance abuse?: No - Immunizations Immunizations are current?: Yes PD ED PE NORMAL - Vitals Vital signs reviewed: Yes - General General: Alert and oriented X 3, No acute distress - HEENT HEENT: PERRL, EOMI - Neck Neck: Supple, no meningeal sign, No bony TTP - Cardiac Cardiac: RRR, No murmur - Respiratory Respiratory: No respiratory distress, Clear bilaterally - Abdomen Abdomen: Non tender - Extremities Extremities: No edema - Neuro Neuro: Alert and oriented X 3, Normal speech Results - Vitals Vitals: Vital Signs - 24 hr 05/21/20 05/21/20 17:43 17:57 Temperature 36.3 C L 36.5 C Heart Rate 80 76 Respiratory 18 15 Rate Blood Pressure 141/74 H 175/70 H O2 Saturation 98 98 Oxygen O2 Source Room air - EKG (time done) 1802 Rate: Rate (enter#) (81) Rhythm: Atrial fibrillation [place]: Normal Intervals: RBBB Ischemia: Normal ST segments - Labs Labs: Laboratory Tests 05/21/20 05/21/20 05/21/20 18:07 18:07 18:20 WBC 8.5 RBC 4.08 L Hgb 11.9 L Hct 36.8 L MCV 90.2 MCH 29.2 MCHC 32.3 RDW 15.2 H Plt Count 329 MPV 9.2 Neut # (Auto) 6.6 Lymph # (Auto) 0.9 L [place] # (Auto) 0.7 Eos # (Auto) 0.2 Baso # (Auto) 0.0 Absolute Nucleated RBC 0.00 Nucleated RBC % 0.0 Sodium 139 Potassium 3.9 Chloride 101 Carbon Dioxide 27 Anion Gap 11.0 BUN 20 Creatinine 0.8 Estimated GFR (MDRD) 93 Glucose 117 H Calcium 8.6 Total Bilirubin 1.1 H AST 19 ALT 21 Alkaline Phosphatase 54 Total Protein 7.0 Albumin 3.3 Globulin 3.7 Albumin/Globulin Ratio 0.9 L Lipase 22 Urine Color DARK YELLOW Urine Clarity CLOUDY Urine pH 5.5 Ur Specific [place] 1.025 Urine Protein 100 H Urine Glucose (UA) NEGATIVE Urine Ketones NEGATIVE Urine Occult Blood LARGE H Urine Nitrite POSITIVE H Urine Bilirubin NEGATIVE Urine Urobilinogen 1 (NORMAL) Ur Leukocyte Esterase MODERATE H Ur Microscopic Review INDICATED Urine Culture Comments Not Reportable - Rads (name of study) 1v CXR Radiology: EMP read contemporaneously (cardiomegaly, NAD) PD MEDICAL DECISION MAKING - ED course ED course: 80-year-old gentleman with gross hematuria was referred from the office for shortness of breath. He is in A. fib in and out on the monitor but otherwise his examination is normal. Doubt PE he is anticoagulated. No evidence of CHF. Chest x-ray is clear. Does have evidence of UTI treated with Cipro. Departure - Departure Disposition: Home, Self Care Clinical Impression: Dyspnea on effort UTI (urinary tract infection) Qualifiers: Urinary tract infection type: site unspecified Hematuria presence: with hematuria Qualified Code(s): N39.0 - Urinary tract infection, site not specified; R31.9 - Hematuria, unspecified Condition: Good Record reviewed to determine appropriate education?: Yes Instructions: ED UTI Cystitis Male, ED Dyspnea Shortness of Breath Prescriptions: Ciprofloxacin HCl [Cipro] 500 mg PO BID #20 tablet Comments: Return if worsening or for new symptoms. Follow-up with your doctor next week for reevaluation. We will culture your urine, the results should be done in 48-72 hours. If an antibiotic change is necessary we will call you. Return if worse in the meantime, especially if you develop increasing flank pain, fevers, or cannot keep down the medication.
[2020-05-21 18:11] LABS: BASOPHILS % (AUTO) 0.5 %; EOSINOPHILS # (AUTO) 0.2 10^3/uL (0.0-0.7); EOSINOPHILS % (AUTO) 2.3 %; HGB - HEMOGLOBIN 11.9 g/dL (14.0-18.0); LYMPHOCYTES # (AUTO) 0.9 10^3/uL (1.5-3.5); MEAN CORPUSCULAR HEMOGLOBIN 29.2 pg (27.0-31.0); MEAN CORPUSCULAR HGB CONC 32.3 g/dL (32.0-36.0); MEAN CORPUSCULAR VOLUME 90.2 fL (80.0-94.0); MEAN PLATELET VOLUME 9.2 fL (7.4-11.4); MONOCYTES # (AUTO) 0.7 10^3/uL (0.0-1.0); MONOCYTES % (AUTO) 8.1 %; NEUTROPHILS # (AUTO) 6.6 10^3/uL (1.5-6.6); NEUTROPHILS % (AUTO) 77.6 %; PLT - PLATELET COUNT 329 10^3/uL (130-450); RED BLOOD COUNT 4.08 10^6/uL (4.70-6.10); RED CELL DISTRIBUTION WIDTH 15.2 % (12.0-15.0); WHITE BLOOD COUNT 8.5 x10^3/uL (4.8-10.8)
[2020-05-21 18:26] LABS: ALBUMIN 3.3 g/dL (3.2-5.5); ALBUMIN/GLOBULIN RATIO 0.9 (1.0-2.2); BILIRUBIN,TOTAL 1.1 mg/dL (0.2-1.0); CALCIUM 8.6 mg/dL (8.5-10.3); CREATININE 0.8 mg/dL (0.6-1.2)
--- NOTE | 2020-05-21 18:44 | XRAY Report ---
PROCEDURE: Chest 1 View X-Ray INDICATIONS: dyspnea TECHNIQUE: One view of the chest was acquired. COMPARISON: 2 views of the chest dated 02/11/2019 FINDINGS: Surgical changes and devices: None. Lungs and pleura: No pleural effusions or pneumothorax. Lungs are clear. Mediastinum: Mediastinal contours appear normal. Heart size is mildly enlarged, as before. Bones and chest wall: No suspicious bony lesions. Overlying soft tissues appear unremarkable. IMPRESSION: No acute cardial pulmonary findings. Cardiomegaly. Reviewed by: Brenda Rojas MD on 05/21/2020 6:43 PM PDT Approved by: Brenda Rojas MD on 05/21/2020 6:43 PM PDT Station ID: [id number]
[2020-05-21 18:50] LABS: BILIRUBIN,URINE NEGATIVE (NEGATIVE); GLUCOSE, URINE (UA) NEGATIVE (NEGATIVE); KETONES,URINE (UA) NEGATIVE (NEGATIVE); LEUKOCYTE ESTERASE, URINE MODERATE (NEGATIVE); NITRITE,URINE POSITIVE (NEGATIVE); OCCULT BLOOD,URINE LARGE (NEGATIVE); PH,URINE 5.5 PH (5.0-7.5); PROTEIN,URINE 100 mg/dL (NEGATIVE); UROBILINOGEN,URINE 1 (NORMAL) E.U./dL (NORMAL)
[2020-05-21 18:51] LABS: CLARITY,URINE CLOUDY (CLEAR)
[2020-05-21] MEDS ORDERED: CIPROFLOXACIN 250 MG TABLET PO STA (19:16)
[2020-05-21 19:22] LABS: BACTERIA,URINE Many /HPF (None Seen); RBC,URINE TNTC /HPF (0-5); SQUAMOUS EPITHELIAL CELL,UR RARE Squamous (<= Few)
[2020-05-21 19:34] VITALS: BP 151/82
== END 2020-05-21 19:34 | disposition home or self-care (01) ==
LOC: ED 17:36
DX: R06.09 Other forms of dyspnea (principal); N39.0 Urinary tract infection, site not specified; I48.91 Unspecified atrial fibrillation; E11.42 Type 2 diabetes mellitus with diabetic polyneuropathy; Z79.01 Long term (current) use of anticoagulants; Z79.4 Long term (current) use of insulin
CPT/HCPCS: 36415; 71045; 80053; 81001; 83690; 85025; 87077; 87086; 87181; 93005; 99284; A9270; 81003

== ENCOUNTER 2020-07-05 12:15 | Outpatient (CLI) | payer MEDICARE, BC ==
[2020-07-05 18:58] LABS: CALCIUM 9.3 mg/dL (8.5-10.3); CREATININE 0.8 mg/dL (0.6-1.2)
[2020-07-05 19:06] LABS: BILIRUBIN,URINE NEGATIVE (NEGATIVE); GLUCOSE, URINE (UA) 500 mg/dL (NEGATIVE); KETONES,URINE (UA) TRACE mg/dL (NEGATIVE); LEUKOCYTE ESTERASE, URINE NEGATIVE (NEGATIVE); NITRITE,URINE NEGATIVE (NEGATIVE); OCCULT BLOOD,URINE NEGATIVE (NEGATIVE); PH,URINE 5.5 PH (5.0-7.5); PROTEIN,URINE 100 mg/dL (NEGATIVE); UROBILINOGEN,URINE 1 (NORMAL) E.U./dL (NORMAL)
[2020-07-05 19:08] LABS: CLARITY,URINE CLEAR (CLEAR)
[2020-07-05 19:32] LABS: CREATININE,URINE 221.3 mg/dL; MICROALBUM/CREATININE RATIO,UR 452.3 ug/mg (<30.0); MICROALBUMIN,URINE 100.1 mg/dL (0-300.0)
[2020-07-05 19:54] LABS: RBC,URINE 0-5 /HPF (0-5)
[2020-07-05 19:55] LABS: BACTERIA,URINE Few /HPF (None Seen); SPERM,URINE PRESENT; SQUAMOUS EPITHELIAL CELL,UR RARE Squamous (<= Few)
[2020-07-05 22:06] LABS: HEMOGLOBIN A1c% 7.8 % (4.27-6.07)
== END 2020-07-05 23:59 | disposition home or self-care (01) ==
LOC: LAB.WCP 12:15
PROVIDERS: ATTEND Family Medicine
DX: E11.40 Type 2 diabetes mellitus with diabetic neuropathy, unspecified (principal); N30.91 Cystitis, unspecified with hematuria
CPT/HCPCS: 36415; 80048; 81001; 82043; 82570; 83036; 87086

== ENCOUNTER 2020-07-22 12:09 | Outpatient (CLI) | payer MEDICARE, BC ==
--- NOTE | 2020-07-22 15:01 | Ultrasound Report ---
PROCEDURE: Retroperitoneal INDICATIONS: RECURRENT BACTERIAL CYSTITIS, HEMATURIA TECHNIQUE: Real-time scanning was performed of the retroperitoneal organs, with image documentation. COMPARISON: None. FINDINGS: The urinary bladder is unremarkable without wall thickening or mass. There is a post void residual of approximately 26 mL. Both ureteral jets identified. Both kidneys normal in size with normal cortical thickness and echogenicity. There is approximately 1 .6 cm cyst in the left lower pole. No shadowing calculus or hydronephrosis. IMPRESSION: Small post void urinary bladder residual. Approximately 1.6 cm left renal cyst. Otherwise normal exam. Reviewed by: Ted Orellana MD on 07/22/2020 3:00 PM PST Approved by: Ted Orellana MD on 07/22/2020 3:00 PM PST Station ID: [id number]
== END 2020-07-22 12:10 | disposition home or self-care (01) ==
LOC: DI 12:09
PROVIDERS: ATTEND Family Medicine
DX: N28.1 Cyst of kidney, acquired (principal)

== ENCOUNTER 2020-10-03 13:46 | Emergency (ER) | payer MEDICARE, BC ==
[2020-10-03 13:58] VITALS: BP 113/60
--- NOTE | 2020-10-03 14:30 | ED Physician Documentation ---
PD HPI MALE - Stated complaint Stated Complaint: BLOOD IN URINE - Chief complaint Chief Complaint: General - History obtained from History obtained from: Patient - History of Present Illness Timing - onset: Last night Timing - duration: Hours Timing - details: Abrupt onset, Still present Associated symptoms: Dysuria, Hematuria Similar symptoms before: Diagnosis (UTI with hematuria) Recently seen: Not recently seen - Additional information Additional information: 80-year-old male has a prior has had a prior episode of hematuria this was attributed to infection and the symptoms resolved with treatment. He developed hematuria again last night he brings in a jog of bloody urine and states that this morning this was somewhat lead pourer in color and that he had some pain with urination. He has not had fever or vomiting. He is scheduled to get a watchman put in tomorrow he is concerned that this will delay his procedure he has however stopped taking his Pradaxa in preparation. Review of Systems Constitutional: denies: Fever, Myalgias Eyes: denies: Decreased vision Ears: denies: Ear pain Nose: denies: Congestion Throat: denies: Sore throat Cardiac: denies: Chest pain / pressure, Palpitations Respiratory: denies: Dyspnea, Cough GI: denies: Abdominal Pain, Nausea, Vomiting : reports: Dysuria, Hematuria PD PAST MEDICAL HISTORY - Past Medical History Cardiovascular: Congestive heart failure, Hypertension, High cholesterol, Atrial fibrillation, Murmur, Valve disorder Respiratory: Asthma Neuro: CVA, Peripheral neuropathy Endocrine/Autoimmune: Type 2 diabetes GI: GERD, Chronic constipation : None HEENT: None Psych: None Musculoskeletal: Other Derm: Other drug resistant infections, Other - Past Surgical History Past Surgical History: Yes General: Colonoscopy, EGD Ortho: Knee replacement, Rotator cuff repair, Carpal Tunnel surgery, Spine surgery, Amputation Cardiovascular: CABG, Coronary stent HEENT: Tonsil/Adenoidectomy Derm: Skin cancer surgery - Present Medications Home Medications: Ambulatory Orders Medication Instructions Recorded Confirmed Insulin Aspart (Vial) [NovoLOG] 0 - 26 units SUBQ TIDWM 03/06/13 05/21/20 Insulin Detemir [Levemir] 70 unit SQ BID 03/06/13 05/21/20 Ramipril [Altace] 5 mg PO DAILY 03/06/13 05/21/20 Metoprolol Succinate [Toprol Xl] 25 mg PO BID 04/16/13 05/21/20 Multivitamin [Multivitamins] 1 each PO DAILY 04/16/13 05/21/20 Pregabalin [Lyrica] 200 - 300 mg PO BID 04/16/13 05/21/20 Atorvastatin Calcium 80 mg PO QPM 02/26/15 05/21/20 Dabigatran Etexilate Mesylate 150 mg PO BID 02/26/15 05/21/20 [Pradaxa] Albuterol Sulf [Ventolin Hfa 2 - 3 puffs INH Q4HR PRN #1 inhaler 04/12/18 05/21/20 Inhaler] Furosemide [Lasix] 20 mg PO DAILY #30 tablet 04/12/18 06/17/19 Isosorbide Mononitrate ER [Imdur] 1 tab PO DAILY 04/12/18 05/21/20 Fluticasone/Vilanterol [Breo 1 each IH DAILY 06/25/19 05/21/20 Ellipta 100-25 Mcg INH] Ipratropium/Albuterol [Combivent 4 gm IH DAILY 06/25/19 05/21/20 Respimat] Metformin HCl [Metformin HCl ER] 500 mg PO BID 06/25/19 05/21/20 Tramadol HCl [Ultram ER] 300 mg PO DAILY 06/25/19 05/21/20 Ciprofloxacin HCl [Cipro] 500 mg PO BID #20 tablet 05/21/20 Nitrofurantoin [Macrobid] 100 mg PO BID #14 cap 10/03/20 - Allergies Allergies/Adverse Reactions: Allergies Allergy/AdvReac Type Severity Reaction Status Date / Time codeine [Codeine] Allergy Severe Emesis Verified 10/03/20 13:58 - Social History Does the pt smoke?: No Smoking Status: Never smoker Does the pt drink ETOH?: No Does the pt have substance abuse?: No - Immunizations Immunizations are current?: Yes - POLST Patient has POLST: No PD ED PE NORMAL - Vitals Vital signs reviewed: Yes (normal ) - General General: Alert and oriented X 3, No acute distress, Well developed/nourished - HEENT HEENT: Atraumatic, PERRL, EOMI - Respiratory Respiratory: No respiratory distress - Derm Derm: Normal color, Warm and dry, No rash - Extremities Extremities: No deformity, No edema - Neuro Neuro: Alert and oriented X 3, 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, No motor deficit, No sensory deficit, Normal speech Eye Opening: Spontaneous Motor: Obeys Commands Verbal: Oriented GCS Score: 15 - Psych Psych: Normal mood, Normal affect Results - Vitals Vitals: Vital Signs - 24 hr 10/03/20 13:48 Temperature 36.1 C L Heart Rate 77 Respiratory 17 Rate Blood Pressure 113/60 O2 Saturation 99 Oxygen O2 Source Room air - Labs Labs: Laboratory Tests 10/03/20 15:56 Urine Color DARK YELLOW Urine Clarity CLEAR Urine pH 6.5 Ur Specific [place] 1.025 Urine Protein 100 H Urine Glucose (UA) NEGATIVE Urine Ketones NEGATIVE Urine Occult Blood LARGE H Urine Nitrite NEGATIVE Urine Bilirubin NEGATIVE Urine Urobilinogen 0.2 (NORMAL) Ur Leukocyte Esterase NEGATIVE Urine RBC TNTC H Urine WBC 6-10 H Ur Squamous Epith Cells RARE Squamous Urine Bacteria None Seen Ur Microscopic Review INDICATED Urine Culture Comments INDICATED PD MEDICAL DECISION MAKING - ED course Complexity details: reviewed old records, reviewed results, re-evaluated patient, considered differential, d/w patient ED course: 80 y/o male with hematuria possibly related to his use of pradaxa. He has stopped the Pradaxa because of an upcoming surgical procedure and his hematuria is already less. The urine is a soft call on infection and he is prescribed macrobid and the urine is cultured. Departure - Departure Disposition: 01 Home, Self Care Clinical Impression: UTI (urinary tract infection) Qualifiers: Urinary tract infection type: acute cystitis Hematuria presence: with hematuria Qualified Code(s): N30.01 - Acute cystitis with hematuria Hematuria Qualifiers: Hematuria type: gross Qualified Code(s): R31.0 - Gross hematuria Condition: Stable Instructions: ED Hematuria, ED UTI Cystitis Male Follow-Up: Lj Garcia MD [Primary Care Provider] - Prescriptions: Nitrofurantoin [Macrobid] 100 mg PO BID #14 cap Discharge Date/Time: 10/03/20 16:36
[2020-10-03 16:03] LABS: BILIRUBIN,URINE NEGATIVE (NEGATIVE); CLARITY,URINE CLEAR (CLEAR); GLUCOSE, URINE (UA) NEGATIVE (NEGATIVE); KETONES,URINE (UA) NEGATIVE (NEGATIVE); LEUKOCYTE ESTERASE, URINE NEGATIVE (NEGATIVE); NITRITE,URINE NEGATIVE (NEGATIVE); OCCULT BLOOD,URINE LARGE (NEGATIVE); PH,URINE 6.5 PH (5.0-7.5); PROTEIN,URINE 100 mg/dL (NEGATIVE); UROBILINOGEN,URINE 0.2 (NORMAL) E.U./dL (NORMAL)
[2020-10-03 16:08] LABS: BACTERIA,URINE None Seen /HPF (None Seen); RBC,URINE TNTC /HPF (0-5); SQUAMOUS EPITHELIAL CELL,UR RARE Squamous (<= Few)
== END 2020-10-03 16:36 | disposition home or self-care (01) ==
LOC: ED 13:46
DX: N30.01 Acute cystitis with hematuria (principal); Z79.01 Long term (current) use of anticoagulants; I48.91 Unspecified atrial fibrillation; I11.0 Hypertensive heart disease with heart failure; I50.9 Heart failure, unspecified; E11.42 Type 2 diabetes mellitus with diabetic polyneuropathy; Z79.4 Long term (current) use of insulin
CPT/HCPCS: 81001; 81003; 87086; 99283; 99284

== ENCOUNTER 2021-03-22 15:38 | Outpatient (CLI) | payer MEDICARE, BC ==
[2021-03-22 16:02] LABS: BASOPHILS # (AUTO) 0.1 10^3/uL (0.0-0.1); BASOPHILS % (AUTO) 0.6 %; EOSINOPHILS # (AUTO) 0.3 10^3/uL (0.0-0.7); EOSINOPHILS % (AUTO) 3.4 %; HCT - HEMATOCRIT 40.9 % (42.0-52.0); HGB - HEMOGLOBIN 13.7 g/dL (14.0-18.0); LYMPHOCYTES # (AUTO) 1.3 10^3/uL (1.5-3.5); LYMPHOCYTES % (AUTO) 14.4 %; MEAN CORPUSCULAR HEMOGLOBIN 29.8 pg (27.0-31.0); MEAN CORPUSCULAR HGB CONC 33.5 g/dL (32.0-36.0); MEAN CORPUSCULAR VOLUME 89.1 fL (80.0-94.0); MEAN PLATELET VOLUME 9.6 fL (7.4-11.4); MONOCYTES # (AUTO) 0.6 10^3/uL (0.0-1.0); MONOCYTES % (AUTO) 7.2 %; NEUTROPHILS # (AUTO) 6.6 10^3/uL (1.5-6.6); NEUTROPHILS % (AUTO) 74.1 %; PLT - PLATELET COUNT 345 10^3/uL (130-450); RED BLOOD COUNT 4.59 10^6/uL (4.70-6.10); RED CELL DISTRIBUTION WIDTH 14.6 % (12.0-15.0)
[2021-03-22 16:18] LABS: ALBUMIN 3.8 g/dL (3.2-5.5); ALBUMIN/GLOBULIN RATIO 1.2 (1.0-2.2); ALKALINE PHOSPHATASE 63 IU/L (42-121); ALT ALANINE AMINOTRANSFERASE 32 IU/L (10-60); AST ASPARTATE AMINOTRANSFERASE 23 IU/L (10-42); BILIRUBIN,TOTAL 1.2 mg/dL (0.2-1.0); BUN - BLOOD UREA NITROGEN 14 mg/dL (6-20); CALCIUM 9.3 mg/dL (8.5-10.3); CARBON DIOXIDE - CO2 30 mmol/L (21-32); CHLORIDE 101 mmol/L (101-111); CHOL/HDL RATIO 2.9 (<5.0); CHOLESTEROL 106 mg/dL; CREATININE 0.8 mg/dL (0.6-1.2); GFR - MDRD 93 (>89); GLUCOSE 176 mg/dL (70-100); HDL CHOLESTEROL 37 mg/dL; LDL CHOLESTEROL,CALCULATED 51 mg/dL; LDL/HDL RATIO 1.4 (<3.6); POTASSIUM 4.5 mmol/L (3.5-5.0); SODIUM 139 mmol/L (135-145); TOTAL PROTEIN 7.1 g/dL (6.7-8.2); TRIGLYCERIDES 92 mg/dL; VLDL CHOLESTEROL 18 mg/dL
[2021-03-22 16:25] LABS: CREATININE,URINE 204.4 mg/dL; MICROALBUM/CREATININE RATIO,UR 236.8 ug/mg (<30.0); MICROALBUMIN,URINE 48.4 mg/dL (0-300.0)
[2021-03-22 16:29] LABS: THYROID STIMULATING HORMONE 2.19 uIU/mL (0.34-5.60)
[2021-03-22 20:17] LABS: ESTIMATED AVERAGE GLUCOSE 209 mg/dL (70-100); HEMOGLOBIN A1c% 8.9 % (4.27-6.07)
== END 2021-03-22 15:39 | disposition home or self-care (01) ==
LOC: LAB 15:38
PROVIDERS: ATTEND Family Medicine
DX: I50.9 Heart failure, unspecified (principal); Z95.2 Presence of prosthetic heart valve; E11.42 Type 2 diabetes mellitus with diabetic polyneuropathy; E11.621 Type 2 diabetes mellitus with foot ulcer; M14.679 Charcot's joint, unspecified ankle and foot; K21.9 Gastro-esophageal reflux disease without esophagitis; I48.91 Unspecified atrial fibrillation; I25.10 Atherosclerotic heart disease of native coronary artery without angina pectoris; E78.5 Hyperlipidemia, unspecified
CPT/HCPCS: 36415; 80053; 80061; 82043; 82570; 83036; 83721; 83880; 84443; 85025

== ENCOUNTER 2021-09-10 08:00 | Outpatient (CLI) | payer MEDICARE, BC ==
[2021-09-10 17:09] LABS: H. PYLORIS ANTIGEN STL NEGATIVE (Negative)
== END 2021-09-10 23:59 ==
LOC: LAB 08:00
PROVIDERS: ATTEND Physician Assistant
DX: R19.7 Diarrhea, unspecified (principal)
CPT/HCPCS: 81599; 87045; 87177; 87209; 87329; 87338; 87427; 87449; 87493

== ENCOUNTER 2021-11-26 16:54 | Outpatient (CLI) | payer MEDICARE, BC ==
[2021-11-26 17:30] LABS: CALCIUM 8.8 mg/dL (8.5-10.3); CREATININE 0.8 mg/dL (0.6-1.2); POTASSIUM 4.2 mmol/L (3.5-5.0)
== END 2021-11-26 16:55 | disposition home or self-care (01) ==
LOC: LAB 16:54
PROVIDERS: ATTEND Family Medicine
DX: E11.29 Type 2 diabetes mellitus with other diabetic kidney complication (principal)
CPT/HCPCS: 36415; 80048; 81599; 82043; 82570; 83036

== ENCOUNTER 2021-11-27 16:35 | Outpatient (CLI) | payer MEDICARE, BC | END 2021-11-27 16:36 | disposition critical access hospital (66) | LOC: EMS 16:35 | DX: E11.649 Type 2 diabetes mellitus with hypoglycemia without coma (principal); Z79.4 Long term (current) use of insulin; Z79.84 Long term (current) use of oral hypoglycemic drugs; R62.7 Adult failure to thrive; Z74.1 Need for assistance with personal care; R05.9 Cough, unspecified | CPT/HCPCS: A0425; A0427 ==

== ENCOUNTER 2021-11-27 16:45 | Emergency (ER) | payer MEDICARE, BC ==
[2021-11-27] MEDS ORDERED: DEXTROSE 50% ABBOJECT 25 GM/50 ML SYRINGE ONE (17:00)
[2021-11-27 17:30] LABS: BASOPHILS # (AUTO) 0.1 10^3/uL (0.0-0.1); BASOPHILS % (AUTO) 0.3 %; EOSINOPHILS % (AUTO) 0.1 %; HCT - HEMATOCRIT 39.6 % (42.0-52.0); HGB - HEMOGLOBIN 13.1 g/dL (14.0-18.0); LYMPHOCYTES # (AUTO) 0.8 10^3/uL (1.5-3.5); LYMPHOCYTES % (AUTO) 4.2 %; MEAN CORPUSCULAR HEMOGLOBIN 29.1 pg (27.0-31.0); MEAN CORPUSCULAR HGB CONC 33.1 g/dL (32.0-36.0); MEAN PLATELET VOLUME 9.4 fL (7.4-11.4); MONOCYTES # (AUTO) 0.8 10^3/uL (0.0-1.0); MONOCYTES % (AUTO) 4.6 %; NEUTROPHILS # (AUTO) 16.6 10^3/uL (1.5-6.6); NEUTROPHILS % (AUTO) 90.4 %; PLT - PLATELET COUNT 343 10^3/uL (130-450); RED CELL DISTRIBUTION WIDTH 14.6 % (12.0-15.0); WHITE BLOOD COUNT 18.3 x10^3/uL (4.8-10.8)
--- NOTE | 2021-11-27 17:33 | ED Physician Documentation ---
History of Present Illness - Stated complaint Stated Complaint: FOUND DOWN - Chief complaint Chief Complaint: Neuro - History obtained from History obtained from: Patient, EMS - History of Present Illness Timing: Today Pain level max: 0 Pain level now: 0 - Additonal information Additional information: Patient is an 81-year-old male who lives at home alone. EMS states that they arrived, found him on the floor and his blood sugar was low. They gave him 2 amps of D50 and his blood sugar increased as did his mental status. They gave him food as well. Patient states he has also had a cough for the past week or so. No fevers. No chills. He states occasionally has mild shortness of breath. No chest pain. No abdominal pain. No nausea or vomiting. Denies any injuries. Denies any pain. Review of Systems Ten Systems: 10 systems reviewed and negative Constitutional: denies: Fever, Chills Ears: denies: Ear pain Nose: denies: Rhinorrhea / runny nose, Congestion Cardiac: denies: Chest pain / pressure, Palpitations Respiratory: reports: Cough (Dry). denies: Dyspnea, Hemoptysis, Wheezing GI: denies: Abdominal Pain, Nausea, Vomiting, Diarrhea Skin: denies: Rash Musculoskeletal: denies: Neck pain, Back pain Neurologic: denies: Headache PD PAST MEDICAL HISTORY - Past Medical History Cardiovascular: Congestive heart failure, Hypertension, High cholesterol, Atrial fibrillation, Murmur, Valve disorder Respiratory: Asthma Neuro: CVA, Peripheral neuropathy Endocrine/Autoimmune: Type 2 diabetes GI: GERD, Chronic constipation : None HEENT: None Psych: None Musculoskeletal: Other Derm: Other drug resistant infections, Other - Past Surgical History Past Surgical History: Yes General: Colonoscopy, EGD Ortho: Knee replacement, Rotator cuff repair, Carpal Tunnel surgery, Spine surgery, Amputation Cardiovascular: CABG, Coronary stent HEENT: Tonsil/Adenoidectomy Derm: Skin cancer surgery - Present Medications Home Medications: Ambulatory Orders Medication Instructions Recorded Confirmed Insulin Aspart (Vial) [NovoLOG] 0 - 26 units SUBQ TIDWM 03/06/13 05/21/20 Insulin Detemir [Levemir] 70 unit SQ BID 03/06/13 05/21/20 Ramipril [Altace] 5 mg PO DAILY 03/06/13 05/21/20 Metoprolol Succinate [Toprol Xl] 25 mg PO BID 04/16/13 05/21/20 Multivitamin [Multivitamins] 1 each PO DAILY 04/16/13 05/21/20 Pregabalin [Lyrica] 200 - 300 mg PO BID 04/16/13 05/21/20 Atorvastatin Calcium 80 mg PO QPM 02/26/15 05/21/20 Dabigatran Etexilate Mesylate 150 mg PO BID 02/26/15 05/21/20 [Pradaxa] Albuterol Sulf [Ventolin Hfa 2 - 3 puffs INH Q4HR PRN #1 inhaler 04/12/18 05/21/20 Inhaler] Furosemide [Lasix] 20 mg PO DAILY #30 tablet 04/12/18 06/17/19 Isosorbide Mononitrate ER [Imdur] 1 tab PO DAILY 04/12/18 05/21/20 Fluticasone/Vilanterol [Breo 1 each IH DAILY 06/25/19 05/21/20 Ellipta 100-25 Mcg INH] Ipratropium/Albuterol [Combivent 4 gm IH DAILY 06/25/19 05/21/20 Respimat] Metformin HCl [Metformin HCl ER] 500 mg PO BID 06/25/19 05/21/20 Tramadol HCl [Ultram ER] 300 mg PO DAILY 06/25/19 05/21/20 Ciprofloxacin HCl [Cipro] 500 mg PO BID #20 tablet 05/21/20 Nitrofurantoin [Macrobid] 100 mg PO BID #14 cap 10/03/20 - Allergies Allergies/Adverse Reactions: Allergies Allergy/AdvReac Type Severity Reaction Status Date / Time codeine [Codeine] Allergy Severe Emesis Verified 11/27/21 16:53 - Social History Does the pt smoke?: No Smoking Status: Never smoker Does the pt drink ETOH?: No Does the pt have substance abuse?: No - Immunizations Immunizations are current?: Yes - POLST Patient has POLST: No PD ED PE NORMAL - Vitals Vital signs reviewed: Yes - General General: Alert and oriented X 3, No acute distress - HEENT HEENT: PERRL - Neck Neck: Supple, no meningeal sign - Cardiac Cardiac: RRR, Strong equal pulses - Respiratory Respiratory: No respiratory distress, Clear bilaterally - Abdomen Abdomen: Soft, Non tender, Non distended - Derm Derm: Warm and dry - Extremities Extremities: No calf tenderness / cord - Neuro Neuro: Alert and oriented X 3 - Psych Psych: Normal mood, Normal affect Results - Vitals Vitals: Vital Signs - 24 hr 11/27/21 11/27/21 11/27/21 16:53 18:05 18:33 Temperature 37.1 C Heart Rate 75 82 60 Respiratory 16 18 15 Rate Blood Pressure 132/65 H 119/60 117/64 O2 Saturation 99 100 99 11/27/21 11/27/21 11/27/21 19:21 19:30 20:00 Temperature Heart Rate 71 85 72 Respiratory 20 20 18 Rate Blood Pressure 125/72 137/98 H 130/73 O2 Saturation 97 98 97 Oxygen O2 Source Room air - Labs Labs: Laboratory Tests 11/27/21 11/27/21 11/27/21 17:15 17:26 17:26 WBC 18.3 H RBC 4.50 L Hgb 13.1 L Hct 39.6 L MCV 88.0 MCH 29.1 MCHC 33.1 RDW 14.6 Plt Count 343 MPV 9.4 Neut # (Auto) 16.6 H Lymph # (Auto) 0.8 L [place] # (Auto) 0.8 Eos # (Auto) 0.0 Baso # (Auto) 0.1 Absolute Nucleated RBC 0.00 Nucleated RBC % 0.0 Sodium 132 L Potassium 4.3 Chloride 91 L Carbon Dioxide 29 Anion Gap 12.0 BUN 39 H Creatinine 1.0 Estimated GFR (MDRD) 72 L Glucose 166 H Calcium 8.8 Total Bilirubin 0.7 AST 28 ALT 21 Alkaline Phosphatase 55 B-Natriuretic Peptide Total Protein 8.4 H Albumin 3.5 Globulin 4.8 H Albumin/Globulin Ratio 0.7 L Lipase 24 Urine Color Urine Clarity Urine pH Ur Specific [place] Urine Protein Urine Glucose (UA) Urine Ketones Urine Occult Blood Urine Nitrite Urine Bilirubin Urine Urobilinogen Ur Leukocyte Esterase Urine RBC Urine WBC Ur Squamous Epith Cells Urine Bacteria Ur Microscopic Review Urine Culture Comments Nasal Adenovirus (PCR) NOT DETECTED Nasal B. parapertussis DNA (PCR) NOT DETECTED Nasal Coronavir 229E PCR NOT DETECTED Nasal Coronavir HKU1 PCR NOT DETECTED Nasal Coronavir NL63 PCR NOT DETECTED Nasal Coronavir OC43 PCR NOT DETECTED Nasal Enterovir/Rhinovir PCR NOT DETECTED Nasal Influenza B PCR NOT DETECTED Nasal Influenza A PCR NOT DETECTED Nasal Parainfluen 1 PCR NOT DETECTED Nasal Parainfluen 2 PCR NOT DETECTED Nasal Parainfluen 3 PCR NOT DETECTED Nasal Parainfluen 4 PCR NOT DETECTED Nasal RSV (PCR) NOT DETECTED Nasal B.pertussis DNA PCR NOT DETECTED Nasal C.pneumoniae (PCR) NOT DETECTED Luiz Human Metapneumo PCR DETECTED A Nasal M.pneumoniae (PCR) NOT DETECTED Nasal SARS-CoV-2 (PCR) NOT DETECTED 11/27/21 11/27/21 17:26 19:25 WBC RBC Hgb Hct MCV MCH MCHC RDW Plt Count MPV Neut # (Auto) Lymph # (Auto) [place] # (Auto) Eos # (Auto) Baso # (Auto) Absolute Nucleated RBC Nucleated RBC % Sodium Potassium Chloride Carbon Dioxide Anion Gap BUN Creatinine Estimated GFR (MDRD) Glucose Calcium Total Bilirubin AST ALT Alkaline Phosphatase B-Natriuretic Peptide 146 H Total Protein Albumin Globulin Albumin/Globulin Ratio Lipase Urine Color YELLOW Urine Clarity HAZY Urine pH 5.5 Ur Specific [place] 1.025 Urine Protein 30 H Urine Glucose (UA) NEGATIVE Urine Ketones NEGATIVE Urine Occult Blood MODERATE H Urine Nitrite NEGATIVE Urine Bilirubin NEGATIVE Urine Urobilinogen 0.2 (NORMAL) Ur Leukocyte Esterase NEGATIVE Urine RBC 0-5 Urine WBC 0-3 Ur Squamous Epith Cells NONE SEEN Urine Bacteria None Seen Ur Microscopic Review INDICATED Urine Culture Comments NOT INDICATED Nasal Adenovirus (PCR) Nasal B. parapertussis DNA (PCR) Nasal Coronavir 229E PCR Nasal Coronavir HKU1 PCR Nasal Coronavir NL63 PCR Nasal Coronavir OC43 PCR Nasal Enterovir/Rhinovir PCR Nasal Influenza B PCR Nasal Influenza A PCR Nasal Parainfluen 1 PCR Nasal Parainfluen 2 PCR Nasal Parainfluen 3 PCR Nasal Parainfluen 4 PCR Nasal RSV (PCR) Nasal B.pertussis DNA PCR Nasal C.pneumoniae (PCR) Luiz Human Metapneumo PCR Nasal M.pneumoniae (PCR) Nasal SARS-CoV-2 (PCR) - Rads (name of study) Chest x-ray Radiology: Final report received, EMP read contemporaneously, See rad report (No evidence of pneumonia) PD MEDICAL DECISION MAKING - ED course Complexity details: reviewed results, re-evaluated patient, considered differential, d/w patient ED course: Patient is well-appearing, nontoxic. Afebrile. No hypoxia. No respiratory distress. Feels better after IV fluids and eating and drinking. Tested positive for Human metapneumovirus. No evidence of pneumonia. No indication fo r antibiotics. No UTI. Patient request to go home at this time. Has a caregiver at home to help care for him. Patient is ambulating without difficulty. Patient counseled regarding signs and symptoms for which I believe and urgent re-evaluation would be necessary. Patient with good understanding of and agreement to plan and is comfortable going home at this time This document was made in part using voice recognition software. While efforts are made to proofread this document, sound alike and grammatical errors may occur. Departure - Departure Disposition: 01 Home, Self Care Clinical Impression: Hypoglycemia, Infection due to human metapneumovirus (hMPV) Condition: Good Instructions: ED Diabetes Hypoglycemia Oral Agent, ED Viral Syndrome Follow-Up: Lj Garcia MD [Primary Care Provider] - Within 3 Days Comments: Please follow-up with your doctor for further care. Return if you worsen. Make sure you are eating and drinking regularly at home. You did test positive for human metapneumovirus tonight, this is a viral illness that will resolve on its own. Discharge Date/Time: 11/27/21 20:25
--- NOTE | 2021-11-27 17:35 | XRAY Report ---
PROCEDURE: Chest 1 View X-Ray INDICATIONS: cough TECHNIQUE: One view of the chest was acquired. COMPARISON: 05/21/2020 FINDINGS: Surgical changes and devices: None. Lungs and pleura: Low lung volumes are seen, with mild generalized interstitial prominence. No large pneumothorax or large pleural effusion can be seen. Mediastinum: Mediastinal contours appear normal. Heart size is mildly enlarged. Calcification is s een of the aortic arch. Bones and chest wall: No suspicious bony lesions. Age-appropriate degenerative changes are seen. Overlying soft tissues appear unremarkable. IMPRESSION: Cardiomegaly with mild interstitial prominence. Please consider CHF. However, differential diagnosis for the interstitial prominence includes artifact from the poor inspiratory result. Reviewed by: Cali Osullivan MD on 11/27/2021 4:33 PM OSM[facility] Approved by: Cali Osullivan MD on 11/27/2021 4:33 PM OSM[facility] Station ID: [id number]
[2021-11-27 17:42] LABS: ALBUMIN 3.5 g/dL (3.2-5.5); ALBUMIN/GLOBULIN RATIO 0.7 (1.0-2.2); BILIRUBIN,TOTAL 0.7 mg/dL (0.2-1.0); CALCIUM 8.8 mg/dL (8.5-10.3); POTASSIUM 4.3 mmol/L (3.5-5.0); TOTAL PROTEIN 8.4 g/dL (6.7-8.2)
[2021-11-27] MEDS ORDERED: SODIUM CHLORIDE 0.9% 1,000 ML IV STA ×2 (17:48)
[2021-11-27 18:28] LABS: B. PARAPERTUSSIS- RESP PCR PAN NOT DETECTED; B. PERTUSSIS- RESP PCR PANEL NOT DETECTED; C. PNEUMONIAE- RESP PCR PANEL NOT DETECTED; CORONAVIRUS 229E-RESP PCR NOT DETECTED; CORONAVIRUS HKU1-RESP PCR NOT DETECTED; CORONAVIRUS NL63-RESP PCR NOT DETECTED; CORONAVIRUS OC43-RESP PCR NOT DETECTED; HUMAN METAPNEUMOVIRUS DETECTED; INFLUENZA A- RESP PCR PANEL NOT DETECTED; INFLUENZA B - RESP PCR PANEL NOT DETECTED; M. PNEUMONIAE- RESP PCR PANEL NOT DETECTED; PARAINFLUENZA VIRUS 1 NOT DETECTED; PARAINFLUENZA VIRUS 2 NOT DETECTED; PARAINFLUENZA VIRUS 3 NOT DETECTED; PARAINFLUENZA VIRUS 4 NOT DETECTED; RHINOVIRUS/ENTEROVIRUS NOT DETECTED; RSV- RESP PCR PANEL NOT DETECTED; SARS-CoV-2 -RESP PCR PANEL NOT DETECTED
[2021-11-27 19:42] LABS: BILIRUBIN,URINE NEGATIVE (NEGATIVE); GLUCOSE, URINE (UA) NEGATIVE (NEGATIVE); KETONES,URINE (UA) NEGATIVE (NEGATIVE); LEUKOCYTE ESTERASE, URINE NEGATIVE (NEGATIVE); NITRITE,URINE NEGATIVE (NEGATIVE); OCCULT BLOOD,URINE MODERATE (NEGATIVE); PH,URINE 5.5 PH (5.0-7.5); PROTEIN,URINE 30 mg/dL (NEGATIVE); UROBILINOGEN,URINE 0.2 (NORMAL) E.U./dL (NORMAL)
[2021-11-27 19:46] LABS: CLARITY,URINE HAZY (CLEAR)
[2021-11-27 20:06] LABS: RBC,URINE 0-5 /HPF (0-5); SQUAMOUS EPITHELIAL CELL,UR NONE SEEN (<= Few); WBC,URINE 0-3 /HPF (0-3)
[2021-11-27 20:07] LABS: BACTERIA,URINE None Seen /HPF (None Seen)
[2021-11-27 20:21] VITALS: BP 130/73
== END 2021-11-27 20:25 | disposition home or self-care (01) ==
LOC: EDUNIT# → ED 16:45
DX: E11.649 Type 2 diabetes mellitus with hypoglycemia without coma (principal); E11.42 Type 2 diabetes mellitus with diabetic polyneuropathy; B34.8 Other viral infections of unspecified site; I10 Essential (primary) hypertension; Z79.84 Long term (current) use of oral hypoglycemic drugs; Z95.1 Presence of aortocoronary bypass graft
CPT/HCPCS: 36415; 80053; 81001; 81003; 83690; 83880; 85025; 87086; 87633; 96360; 96361; 99282

== ENCOUNTER 2021-11-28 20:31 | Outpatient (CLI) | payer MEDICARE, BC | END 2021-11-28 20:32 | disposition critical access hospital (66) | LOC: EMS 20:31 | DX: R53.1 Weakness (principal); R09.89 Other specified symptoms and signs involving the circulatory and respiratory systems; E11.649 Type 2 diabetes mellitus with hypoglycemia without coma | CPT/HCPCS: A0425; A0427 ==

== ENCOUNTER 2021-11-28 20:45 | Emergency (ER) | payer MEDICARE, BC ==
[2021-11-28 21:49] LABS: BASOPHILS % (AUTO) 0.1 %; EOSINOPHILS % (AUTO) 0.2 %; HCT - HEMATOCRIT 36.3 % (42.0-52.0); LYMPHOCYTES # (AUTO) 0.8 10^3/uL (1.5-3.5); LYMPHOCYTES % (AUTO) 6.9 %; MEAN CORPUSCULAR HEMOGLOBIN 29.6 pg (27.0-31.0); MEAN CORPUSCULAR HGB CONC 33.1 g/dL (32.0-36.0); MEAN CORPUSCULAR VOLUME 89.4 fL (80.0-94.0); MEAN PLATELET VOLUME 9.3 fL (7.4-11.4); MONOCYTES # (AUTO) 0.8 10^3/uL (0.0-1.0); MONOCYTES % (AUTO) 6.2 %; NEUTROPHILS # (AUTO) 10.4 10^3/uL (1.5-6.6); NEUTROPHILS % (AUTO) 86.3 %; PLT - PLATELET COUNT 293 10^3/uL (130-450); RED BLOOD COUNT 4.06 10^6/uL (4.70-6.10); RED CELL DISTRIBUTION WIDTH 14.7 % (12.0-15.0); WHITE BLOOD COUNT 12.1 x10^3/uL (4.8-10.8)
[2021-11-28 22:02] LABS: ALBUMIN 3.3 g/dL (3.2-5.5); ALBUMIN/GLOBULIN RATIO 0.7 (1.0-2.2); BILIRUBIN,TOTAL 0.7 mg/dL (0.2-1.0); CALCIUM 8.5 mg/dL (8.5-10.3); CREATININE 0.7 mg/dL (0.6-1.2); POTASSIUM 3.9 mmol/L (3.5-5.0); TOTAL PROTEIN 7.8 g/dL (6.7-8.2)
[2021-11-28] MEDS ORDERED: FUROSEMIDE 20 MG/2 ML VIAL IVP STA (23:09)
--- NOTE | 2021-11-28 23:34 | XRAY Report ---
PROCEDURE: Chest 1 View X-Ray INDICATIONS: cough/congestion TECHNIQUE: One view of the chest was acquired. COMPARISON: CXR 11/27/2021, 05/21/2020. FINDINGS: Surgical changes and devices: None. Lungs and pleura: No significant pleural effusions or pneumothorax. Diffuse interstitial prominence again seen. Mediastinum: Mediastinal contours appear unchanged. Heart size is at the upper limits of normal. Bones and chest wall: No suspicious bony lesions. Overlying soft tissues appear unremarkable. IMPRESSION: Diffuse interstitial prominence is again seen. Suspect pulmonary vasculature engorgement/fluid overload. Two-view chest x-ray may be helpful for further evaluation. Reviewed by: Rudy Roberts MD on 11/28/2021 11:32 PM PDT Approved by: Rudy Roberts MD on 11/28/2021 11:32 PM PDT Station ID: [id number]
--- NOTE | 2021-11-29 01:29 | ED Physician Documentation ---
History of Present Illness - Stated complaint Stated Complaint: HYPOGLYCEMIA - Chief complaint Chief Complaint: General - Additonal information Additional information: Patient is an 81-year-old male with a history significant for insulin-dependent diabetes, Chronic atrial fibrillation and congestive heart failure presenting for evaluation of feeling weak and shaky. He was found to have low blood sugar this evening. He reports taking 18 units of short acting insulin and then 60 units of his long-acting insulin. He only ate Yoruba onion soup. He had ordered riblets but they were burned so did not eat them. He did not eat anything else. He did not have a syncopal event or head injury. He recently also reports feeling some shortness of breath. He is supposed to be taking a water pill but has not had it for the last month. He reports seeing his doctor today who sent prescriptions to his pharmacy but he did not have the chance to fill them yet. He denies fever, chest pain, abdominal pain, vomiting or diarrhea. Review of Systems Constitutional: denies: Fever Nose: denies: Congestion Cardiac: denies: Chest pain / pressure, Palpitations Respiratory: reports: Dyspnea. denies: Cough GI: denies: Abdominal Pain, Vomiting : denies: Dysuria Skin: denies: Rash Musculoskeletal: denies: Back pain Neurologic: reports: Generalized weakness. denies: Head injury PD PAST MEDICAL HISTORY - Past Medical History Past Medical History: Yes Cardiovascular: Congestive heart failure, Hypertension, High cholesterol, Atrial fibrillation, Murmur, Valve disorder Respiratory: Asthma Neuro: CVA, Peripheral neuropathy Endocrine/Autoimmune: Type 2 diabetes GI: GERD, Chronic constipation : None HEENT: None Psych: None Musculoskeletal: Other Derm: Other drug resistant infections, Other - Past Surgical History Past Surgical History: Yes General: Colonoscopy, EGD Ortho: Knee replacement, Rotator cuff repair, Carpal Tunnel surgery, Spine surgery, Amputation Cardiovascular: CABG, Coronary stent HEENT: Tonsil/Adenoidectomy Derm: Skin cancer surgery - Present Medications Home Medications: Ambulatory Orders Medication Instructions Recorded Confirmed Insulin Aspart (Vial) [NovoLOG] 0 - 26 units SUBQ TIDWM 03/06/13 05/21/20 Insulin Detemir [Levemir] 70 unit SQ BID 03/06/13 05/21/20 Ramipril [Altace] 5 mg PO DAILY 03/06/13 05/21/20 Metoprolol Succinate [Toprol Xl] 25 mg PO BID 04/16/13 05/21/20 Multivitamin [Multivitamins] 1 each PO DAILY 04/16/13 05/21/20 Pregabalin [Lyrica] 200 - 300 mg PO BID 04/16/13 05/21/20 Atorvastatin Calcium 80 mg PO QPM 02/26/15 05/21/20 Dabigatran Etexilate Mesylate 150 mg PO BID 02/26/15 05/21/20 [Pradaxa] Albuterol Sulf [Ventolin Hfa 2 - 3 puffs INH Q4HR PRN #1 inhaler 04/12/18 05/21/20 Inhaler] Furosemide [Lasix] 20 mg PO DAILY #30 tablet 04/12/18 06/17/19 Isosorbide Mononitrate ER [Imdur] 1 tab PO DAILY 04/12/18 05/21/20 Fluticasone/Vilanterol [Breo 1 each IH DAILY 06/25/19 05/21/20 Ellipta 100-25 Mcg INH] Ipratropium/Albuterol [Combivent 4 gm IH DAILY 06/25/19 05/21/20 Respimat] Metformin HCl [Metformin HCl ER] 500 mg PO BID 06/25/19 05/21/20 Tramadol HCl [Ultram ER] 300 mg PO DAILY 06/25/19 05/21/20 Ciprofloxacin HCl [Cipro] 500 mg PO BID #20 tablet 05/21/20 Nitrofurantoin [Macrobid] 100 mg PO BID #14 cap 10/03/20 Furosemide [Lasix] 20 mg PO DAILY #30 tablet 11/29/21 - Allergies Allergies/Adverse Reactions: Allergies Allergy/AdvReac Type Severity Reaction Status Date / Time codeine [Codeine] Allergy Severe Emesis Verified 11/28/21 20:52 - Social History Does the pt smoke?: No Smoking Status: Never smoker Does the pt drink ETOH?: No Does the pt have substance abuse?: No - Immunizations Immunizations are current?: Yes - POLST Patient has POLST: No PD ED PE NORMAL - General General: Alert and oriented X 3, No acute distress, Well developed/nourished - HEENT HEENT: Atraumatic, Moist mucous membranes - Neck Neck: Supple, no meningeal sign - Cardiac Cardiac: No murmur, Strong equal pulses, Other (Regular rate, irregularly ir regular rhythm) - Respiratory Respiratory: No respiratory distress, Other (Diminished at the bases; Rales) - Abdomen Abdomen: Normal bowel sounds, Soft, Non tender - Derm Derm: Normal color - Extremities Extremities: No deformity - Neuro Neuro: Alert and oriented X 3, 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, No motor deficit, No sensory deficit, Normal speech - Psych Psych: Normal mood Results - Vitals Vitals: Vital Signs - 24 hr 11/28/21 11/28/21 11/29/21 20:52 22:55 00:00 Temperature 36.1 C L Heart Rate 79 84 76 Respiratory 21 20 20 Rate Blood Pressure 143/94 H 134/73 H 153/75 H O2 Saturation 95 95 92 11/29/21 11/29/21 01:31 02:34 Temperature Heart Rate 95 91 Respiratory 20 18 Rate Blood Pressure 157/70 H 157/92 H O2 Saturation 95 96 Oxygen O2 Source Room air - EKG (time done) 2117 Rate: Rate (enter#) Rhythm: Atrial fibrillation (78) Intervals: RBBB Ischemia: No: ST elevation c/w ischemia Computer interpretation: Agree with computer - Labs Labs: Laboratory Tests 11/28/21 11/28/21 11/28/21 21:43 21:43 21:43 WBC 12.1 H RBC 4.06 L Hgb 12.0 L Hct 36.3 L MCV 89.4 MCH 29.6 MCHC 33.1 RDW 14.7 Plt Count 293 MPV 9.3 Neut # (Auto) 10.4 H Lymph # (Auto) 0.8 L Warrick # (Auto) 0.8 Eos # (Auto) 0.0 Baso # (Auto) 0.0 Absolute Nucleated RBC 0.00 Nucleated RBC % 0.0 Sodium 130 L Potassium 3.9 Chloride 92 L Carbon Dioxide 28 Anion Gap 10.0 BUN 22 H Creatinine 0.7 Estimated GFR (MDRD) 109 Glucose 61 L Calcium 8.5 Total Bilirubin 0.7 AST 28 ALT 21 Alkaline Phosphatase 55 Troponin I High Sens 12.7 B-Natriuretic Peptide Total Protein 7.8 Albumin 3.3 Globulin 4.5 H Albumin/Globulin Ratio 0.7 L Lipase 26 11/28/21 11/29/21 21:43 00:40 WBC RBC Hgb Hct MCV MCH MCHC RDW Plt Count MPV Neut # (Auto) Lymph # (Auto) Warrick # (Auto) Eos # (Auto) Baso # (Auto) Absolute Nucleated RBC Nucleated RBC % Sodium Potassium Chloride Carbon Dioxide Anion Gap BUN Creatinine Estimated GFR (MDRD) Glucose Calcium Total Bilirubin AST ALT Alkaline Phosphatase Troponin I High Sens 18.5 B-Natriuretic Peptide 209 H Total Protein Albumin Globulin Albumin/Globulin Ratio Lipase PD MEDICAL DECISION MAKING - ED course ED course: Patient with weakness and feeling shaky related to hypoglycemia. Patient took his regular dosing of insulin but did not eat adequately today. Patient was given several food items and eventually able to maintain his own blood sugars without any intervention. Labs were obtained to evaluate for other causes of weakness. Patient has mild hyponatremia. He does endorse some mild shortness of breath. He has not been compliant with his Lasix and was given a dose with significant improvement in his symptoms after diuresis. Repeat troponin is relatively flat and patient denies any symptoms such as chest pain. Do not think he is septic.Patient was counseled on need to be compliant with his medications as well as adhere to a proper diabetic diet. He was instructed to follow-up with his primary care doctor. Departure - Departure Disposition: Home, Self Care Clinical Impression: Hypoglycemia due to insulin, Noncompliance with medication regimen, Hyponatremia Condition: Stable Instructions: ED CHF General, ED Diabetes Hypoglycemia Insulin React Prescriptions: Furosemide [Lasix] 20 mg PO DAILY #30 tablet Comments: Mio you were evaluated for low blood sugar. This likely occurred because you used your regular dose of insulin but did not eat properly after taking the medication. Please only use your regular dosing of insulin if you are eating proper meals. If you do not eat but use insulin, you run the risk of having you r blood sugar go low again. Please fill the prescriptions that your doctor sent to your pharmacy today. I have also sent a prescription for your Lasix to the [facility] in [place] as you are unsure if your doctor refilled this 1.If you develop any new symptoms such as weakness, chest pain, trouble breathing or have any concerns please return to the emergency department. Otherwise, please reach out to your primary care doctor to discuss whether you should remain on the same insulin dosing that you are currently taking. Discharge Date/Time: 11/29/21 02:34
[2021-11-29 02:36] VITALS: BP 157/92
== END 2021-11-29 02:34 | disposition home or self-care (01) ==
LOC: EDUNIT# → ED 20:45
DX: E11.649 Type 2 diabetes mellitus with hypoglycemia without coma (principal); Z79.4 Long term (current) use of insulin; Z79.84 Long term (current) use of oral hypoglycemic drugs; E87.1 Hypo-osmolality and hyponatremia; Z91.14 Patient's other noncompliance with medication regimen; Z20.822 Contact with and (suspected) exposure to COVID-19
CPT/HCPCS: 36415; 71045; 80053; 83690; 83880; 84484; 85025; 93005; 96374; 99283; 99284; U0004

== ENCOUNTER 2021-12-17 21:02 | Outpatient (CLI) | payer MEDICARE, BC | END 2021-12-17 21:03 | disposition left against medical advice (07) | LOC: EMS 21:02 | DX: E11.649 Type 2 diabetes mellitus with hypoglycemia without coma (principal) ==

== ENCOUNTER 2022-02-18 15:54 | Outpatient (CLI) | payer MEDICARE, BC ==
[2022-02-18 16:20] LABS: BASOPHILS % (AUTO) 0.5 %; EOSINOPHILS # (AUTO) 0.2 10^3/uL (0.0-0.7); HCT - HEMATOCRIT 39.9 % (42.0-52.0); HGB - HEMOGLOBIN 13.3 g/dL (14.0-18.0); LYMPHOCYTES # (AUTO) 1.2 10^3/uL (1.5-3.5); LYMPHOCYTES % (AUTO) 13.1 %; MEAN CORPUSCULAR HEMOGLOBIN 29.6 pg (27.0-31.0); MEAN CORPUSCULAR HGB CONC 33.3 g/dL (32.0-36.0); MEAN CORPUSCULAR VOLUME 88.7 fL (80.0-94.0); MEAN PLATELET VOLUME 8.9 fL (7.4-11.4); MONOCYTES # (AUTO) 0.6 10^3/uL (0.0-1.0); NEUTROPHILS # (AUTO) 6.8 10^3/uL (1.5-6.6); NEUTROPHILS % (AUTO) 77.3 %; PLT - PLATELET COUNT 290 10^3/uL (130-450); RED CELL DISTRIBUTION WIDTH 15.5 % (12.0-15.0); WHITE BLOOD COUNT 8.8 x10^3/uL (4.8-10.8)
[2022-02-18 16:38] LABS: ALBUMIN 3.8 g/dL (3.2-5.5); ALKALINE PHOSPHATASE 59 IU/L (42-121); ALT ALANINE AMINOTRANSFERASE 22 IU/L (10-60); AST ASPARTATE AMINOTRANSFERASE 23 IU/L (10-42); BILIRUBIN,TOTAL 1.2 mg/dL (0.2-1.0); BUN - BLOOD UREA NITROGEN 22 mg/dL (6-20); CALCIUM 9.3 mg/dL (8.5-10.3); CARBON DIOXIDE - CO2 32 mmol/L (21-32); CHLORIDE 96 mmol/L (101-111); CHOL/HDL RATIO 2.3 (<5.0); CHOLESTEROL 98 mg/dL; CREATININE 0.7 mg/dL (0.6-1.2); GFR - MDRD 109 (>89); GLUCOSE 71 mg/dL (70-100); HDL CHOLESTEROL 42 mg/dL; POTASSIUM 4.2 mmol/L (3.5-5.0); SODIUM 137 mmol/L (135-145); TOTAL PROTEIN 7.7 g/dL (6.7-8.2); TRIGLYCERIDES 34 mg/dL
[2022-02-18 16:52] LABS: THYROID STIMULATING HORMONE 5.31 uIU/mL (0.34-5.60)
[2022-02-18 16:53] LABS: FREE T3 3.38 pg/mL (2.5-3.9)
[2022-02-18 16:54] LABS: FREE T4 (FREE THYROXINE) 0.94 ng/dL (0.58-1.64)
[2022-02-18 17:25] LABS: MICROALBUMIN,URINE 28.7 mg/dL (0-300.0)
[2022-02-19 08:02] LABS: ESTIMATED AVERAGE GLUCOSE 177 mg/dL (70-100); HEMOGLOBIN A1c% 7.8 % (4.27-6.07)
== END 2022-02-18 15:55 | disposition home or self-care (01) ==
LOC: LAB 15:54
PROVIDERS: ATTEND Family Medicine
DX: E03.9 Hypothyroidism, unspecified (principal); E11.65 Type 2 diabetes mellitus with hyperglycemia; E11.42 Type 2 diabetes mellitus with diabetic polyneuropathy; E11.649 Type 2 diabetes mellitus with hypoglycemia without coma; I11.0 Hypertensive heart disease with heart failure; I50.9 Heart failure, unspecified; I48.91 Unspecified atrial fibrillation; E78.5 Hyperlipidemia, unspecified
CPT/HCPCS: 36415; 80053; 80061; 82043; 82570; 83036; 83721; 84439; 84443; 84481; 85025

== ENCOUNTER 2023-03-27 19:57 | Outpatient (CLI) | payer MEDICARE, BC | END 2023-03-27 23:59 | disposition critical access hospital (66) | LOC: EMS 19:57 | DX: E11.649 Type 2 diabetes mellitus with hypoglycemia without coma (principal) | CPT/HCPCS: A0425; A0427 ==

== ENCOUNTER 2023-03-27 20:23 | Emergency (ER) | payer MEDICARE, BC ==
--- NOTE | 2023-03-27 20:55 | ED Physician Documentation ---
History of Present Illness - Stated complaint Stated Complaint: AMS - Chief complaint Chief Complaint: Neuro - History obtained from History obtained from: Patient, EMS - Additonal information Additional information: Patient is an 82-year-old male presenting for evaluation of altered mental status and hypoglycemia. Patient states that he normally goes to bed around 4 in the morning and wakes up sometime in the afternoon. Patient woke up around 4 or 5 PM and went out to get food. He pulled up into the [facility] parking lot and gave himself his short acting insulin, 20 units as well as 40 units of Levemir. Patient reports he usually takes both of these doses prior to eating.He then went into [facility] and they told him it would be a 1 hour wait. He then drove himself to a nearby [employer] restaurant and got there around 7 PM which is when they closed. He then decided to try and drive home. Per EMS he was noted to be driving erratically and his car came to a stop in oncoming traffic.He was not involved in a motor vehicle collision and other vehicles were able to stop and assist him. EMS found his blood glucose to be 34. He was given an amp of D50 with improvement in his mental status. Patient states he has not had anything to eat yet today and has not had anything since yesterday. Patient denies any current complaints. Review of Systems Constitutional: denies: Fever Cardiac: denies: Chest pain / pressure Respiratory: denies: Dyspnea GI: denies: Abdominal Pain, Vomiting : denies: Dysuria PD PAST MEDICAL HISTORY - Past Medical History Cardiovascular: Congestive heart failure, Hypertension, High cholesterol, Atrial fibrillation, Murmur, Valve disorder Respiratory: Asthma Neuro: CVA, Peripheral neuropathy Endocrine/Autoimmune: Type 2 diabetes GI: GERD, Chronic constipation : None HEENT: None Psych: None Musculoskeletal: Other Derm: Other drug resistant infections, Other - Past Surgical History Past Surgical History: Yes General: Colonoscopy, EGD Ortho: Knee replacement, Rotator cuff repair, Carpal Tunnel surgery, Spine surgery, Amputation Cardiovascular: CABG, Coronary stent HEENT: Tonsil/Adenoidectomy Derm: Skin cancer surgery - Present Medications Home Medications: Ambulatory Orders Medication Instructions Recorded Confirmed Insulin Aspart (Vial) [NovoLOG] 0 - 26 units SUBQ TIDWM 03/06/13 05/21/20 Insulin Detemir [Levemir] 70 unit SQ BID 03/06/13 05/21/20 Ramipril [Altace] 5 mg PO DAILY 03/06/13 05/21/20 Metoprolol Succinate [Toprol Xl] 25 mg PO BID 04/16/13 05/21/20 Multivitamin [Multivitamins] 1 each PO DAILY 04/16/13 05/21/20 Pregabalin [Lyrica] 200 - 300 mg PO BID 04/16/13 05/21/20 Atorvastatin Calcium 80 mg PO QPM 02/26/15 05/21/20 Dabigatran Etexilate Mesylate 150 mg PO BID 02/26/15 05/21/20 [Pradaxa] Albuterol Sulf [Ventolin Hfa 2 - 3 puffs INH Q4HR PRN #1 inhaler 04/12/18 05/21/20 Inhaler] Furosemide [Lasix] 20 mg PO DAILY #30 tablet 04/12/18 06/17/19 Isosorbide Mononitrate ER [Imdur] 1 tab PO DAILY 04/12/18 05/21/20 Fluticasone/Vilanterol [Breo 1 each IH DAILY 06/25/19 05/21/20 Ellipta 100-25 Mcg INH] Ipratropium/Albuterol [Combivent 4 gm IH DAILY 06/25/19 05/21/20 Respimat] Metformin HCl [Metformin HCl ER] 500 mg PO BID 06/25/19 05/21/20 Tramadol HCl [Ultram ER] 300 mg PO DAILY 06/25/19 05/21/20 Ciprofloxacin HCl [Cipro] 500 mg PO BID #20 tablet 05/21/20 Nitrofurantoin [Macrobid] 100 mg PO BID #14 cap 10/03/20 Furosemide [Lasix] 20 mg PO DAILY #30 tablet 11/29/21 - Allergies Allergies/Adverse Reactions: Allergies Allergy/AdvReac Type Severity Reaction Status Date / Time codeine [Codeine] Allergy Severe Emesis Verified 03/27/23 20:33 - Social History Does the pt smoke?: No Smoking Status: Never smoker Does the pt drink ETOH?: No Does the pt have substance abuse?: No - Immunizations Immunizations are current?: Yes - POLST Patient has POLST: No PD ED PE NORMAL - General General: Alert and oriented X 3, No acute distress, Well developed/nourished - HEENT HEENT: Atraumatic, Moist mucous membranes, Pharynx benign - Neck Neck: Supple, no meningeal sign - Cardiac Cardiac: RRR, No murmur - Respiratory Respiratory: No respiratory distress, Clear bilaterally - Abdomen Abdomen: Soft, Non tender - Derm Derm: Warm and dry - Neuro Neuro: Alert and oriented X 3, No motor deficit, No sensory deficit, Normal speech Eye Opening: Spontaneous Motor: Obeys Commands Verbal: Oriented GCS Score: 15 Results - Vitals Vitals: Vital Signs - 24 hr 03/27/23 03/27/23 03/27/23 20:30 20:47 21:16 Temperature 36.0 C L Heart Rate 81 73 Respiratory 18 19 18 Rate Blood Pressure 159/88 H 145/92 H O2 Saturation 94 95 03/27/23 03/28/23 23:00 00:00 Temperature Heart Rate 59 L 62 Respiratory 16 15 Rate Blood Pressure 144/73 H 181/62 H O2 Saturation 100 99 Oxygen O2 Source Room air - EKG (time done) 2100 EKG releavant findings:: EKG personally interpreted by author of this note. Relevant findings are: Rate 74, atrial fibrillation, right bundle branch block Rate: Rate (enter#) (74) Rhythm: Atrial fibrillation Intervals: RBBB, Other (LAFB) Ischemia: No: ST elevation c/w ischemia Compare to prior EKG: Unchanged from prior EKG - Labs Labs: Laboratory Tests 03/27/23 03/27/23 03/28/23 20:42 22:14 00:22 POC Whole Bld Glucose 96 115 H 138 H PD Medical Decision Making - ED course Complexity details: re-evaluated patient, d/w patient ED course: Patient is an 82-year-old male presenting for evaluation of altered mental status and hypoglycemia. Patient had taken his insulin but had not yet eaten today and was found to be altered. Blood glucose was low which improved after D50 as did his mental status. Here patient is acting at his baseline. No focal deficits. No other complaints. He states that he was trying to eat out for dinner but the wait was too long and then was unable to get home prior to the episode. Patient was given food to eat here with continued improvement in his blood glucose and did not require further IV dextrose. Patient denies any symptoms that would suggest other etiology such as sepsis, ACS, stroke. Patient counseled on the importance of not taking his insulin until he has food available. He is counseled on strict return precautions. 1225 - Patient remains asymptomatic. Glucose has remained within normal limits and has not required any further doses of D50. Departure - Departure Disposition: Home, Self Care Clinical Impression: Hypoglycemia due to insulin Condition: Stable Instructions: ED Diabetes Hypoglycemia Insulin React Comments: You were evaluated after you were found with your blood sugar being too low. This happened because you had taken your insulin and not had anything to eat. Please make sure that you are eating a proper meals and do not take your insulin until you have food available. I would not take any further insulin tonight before you go to sleep. Return to the emergency department with any new concerns. Forms: PCP List Discharge Date/Time: 03/28/23 00:38
[2023-03-28 00:57] VITALS: BP 181/62; O2SAT 99
== END 2023-03-28 00:38 | disposition home or self-care (01) ==
LOC: EDUNIT# → ED 20:23
DX: E11.649 Type 2 diabetes mellitus with hypoglycemia without coma (principal); I11.0 Hypertensive heart disease with heart failure; I50.9 Heart failure, unspecified; E78.00 Pure hypercholesterolemia, unspecified; I48.91 Unspecified atrial fibrillation; E11.42 Type 2 diabetes mellitus with diabetic polyneuropathy; Z79.899 Other long term (current) drug therapy; Z79.4 Long term (current) use of insulin; Z79.51 Long term (current) use of inhaled steroids; Z79.84 Long term (current) use of oral hypoglycemic drugs
CPT/HCPCS: 93005; 99283; 99284

== ENCOUNTER 2023-04-19 18:32 | Emergency (ER) | payer MEDICARE, BC ==
[2023-04-19 18:46] VITALS: BP 157/69; O2SAT 98
[2023-04-19] MEDS ORDERED: TETANUS/DIPHTHERIA/PERTUSSIS 0.5 ML SYRINGE IM ONE (18:50)
[2023-04-19] MEDS ORDERED: CEPHALEXIN 250 MG Prepack 8 CAP BOTTLE PO STA (18:50)
--- NOTE | 2023-04-19 18:51 | ED Physician Documentation ---
PD HPI UPPER EXT INJURY - Stated complaint Stated Complaint: R LEG LAC - Chief complaint Chief Complaint: Laceration - History obtained from History obtained from: Patient - Additonal information Additional information: 83-year-old gentleman with type 2 diabetes he does take insulin, history of A- fib in remission status post surgery, coronary disease and with unknown tetanus status had a trip and fall at home last night. He has some abrasions, but there is one on the right leg that he is worried that is developing some redness and so wanted it checked out. Nothing of significant pain. PD PAST MEDICAL HISTORY - Past Medical History Cardiovascular: Congestive heart failure, Hypertension, High cholesterol, Atrial fibrillation, Murmur, Valve disorder Respiratory: Asthma Neuro: CVA, Peripheral neuropathy Endocrine/Autoimmune: Type 2 diabetes GI: GERD, Chronic constipation : None HEENT: None Psych: None Musculoskeletal: Other Derm: Other drug resistant infections, Other - Past Surgical History Past Surgical History: Yes General: Colonoscopy, EGD Ortho: Knee replacement, Rotator cuff repair, Carpal Tunnel surgery, Spine surgery, Amputation Cardiovascular: CABG, Coronary stent HEENT: Tonsil/Adenoidectomy Derm: Skin cancer surgery - Present Medications Home Medications: Ambulatory Orders Medication Instructions Recorded Confirmed Insulin Aspart (Vial) [NovoLOG] 0 - 26 units SUBQ TIDWM 03/06/13 05/21/20 Insulin Detemir [Levemir] 70 unit SQ BID 03/06/13 05/21/20 Ramipril [Altace] 5 mg PO DAILY 03/06/13 05/21/20 Metoprolol Succinate [Toprol Xl] 25 mg PO BID 04/16/13 05/21/20 Multivitamin [Multivitamins] 1 each PO DAILY 04/16/13 05/21/20 Pregabalin [Lyrica] 200 - 300 mg PO BID 04/16/13 05/21/20 Atorvastatin Calcium 80 mg PO QPM 02/26/15 05/21/20 Dabigatran Etexilate Mesylate 150 mg PO BID 02/26/15 05/21/20 [Pradaxa] Albuterol Sulf [Ventolin Hfa 2 - 3 puffs INH Q4HR PRN #1 inhaler 04/12/18 05/21/20 Inhaler] Furosemide [Lasix] 20 mg PO DAILY #30 tablet 04/12/18 06/17/19 Isosorbide Mononitrate ER [Imdur] 1 tab PO DAILY 04/12/18 05/21/20 Fluticasone/Vilanterol [Breo 1 each IH DAILY 06/25/19 05/21/20 Ellipta 100-25 Mcg INH] Ipratropium/Albuterol [Combivent 4 gm IH DAILY 06/25/19 05/21/20 Respimat] Metformin HCl [Metformin HCl ER] 500 mg PO BID 06/25/19 05/21/20 Tramadol HCl [Ultram ER] 300 mg PO DAILY 06/25/19 05/21/20 Ciprofloxacin HCl [Cipro] 500 mg PO BID #20 tablet 05/21/20 Nitrofurantoin [Macrobid] 100 mg PO BID #14 cap 10/03/20 Furosemide [Lasix] 20 mg PO DAILY #30 tablet 11/29/21 cephALEXin [Keflex] 500 mg PO Q6H #28 cap 04/19/23 - Allergies Allergies/Adverse Reactions: Allergies Allergy/AdvReac Type Severity Reaction Status Date / Time codeine [Codeine] Allergy Severe Emesis Verified 04/19/23 18:41 - Social History Does the pt smoke?: No Smoking Status: Never smoker Does the pt drink ETOH?: No Does the pt have substance abuse?: No - Immunizations Immunizations are current?: Yes - POLST Patient has POLST: No PD ED PE NORMAL - Vitals Vital signs reviewed: Yes - General General: Alert and oriented X 3, No acute distress - Neck Neck: Supple, no meningeal sign, No bony TTP - Extremities Extremities: Other (There is an abrasion on the right upper arm above the elbow without tenderness or limited range of motion no signs of infection. There is a deeper abrasion on the anteromedial lower right pratt with surrounding redness that could represent venous stasis versus cellulitis.) - Neuro Neuro: Alert and oriented X 3, Normal speech Results - Vitals Vitals: Vital Signs - 24 hr 04/19/23 18:37 Temperature 36.3 C L Heart Rate 70 Respiratory 16 Rate Blood Pressure 157/69 H O2 Saturation 98 Oxygen O2 Source Room air Departure - Departure Disposition: 01 Home, Self Care Clinical Impression: Cellulitis Qualifiers: Site of cellulitis: extremity Site of cellulitis of extremity: lower extremity Laterality: right Qualified Code(s): L03.115 - Cellulitis of right lower limb Condition: Good Record reviewed to determine appropriate education?: Yes Instructions: Cellulitis Dc Prescriptions: cephALEXin [Keflex] 500 mg PO Q6H #28 cap Comments: Note for your records that your tetanus shot was updated today. If the redness were to continue to worsen or if you were develop a fever please return for reevaluation. Follow-up with your doctor around Sunday for recheck.
== END 2023-04-19 19:24 | disposition home or self-care (01) ==
LOC: ED 18:32
DX: L03.115 Cellulitis of right lower limb (principal); E11.42 Type 2 diabetes mellitus with diabetic polyneuropathy; Z23 Encounter for immunization
CPT/HCPCS: 90471; 99283

== ENCOUNTER 2023-05-17 22:14 | Outpatient (CLI) | payer MEDICARE, BC | END 2023-05-17 23:59 | disposition critical access hospital (66) | LOC: EMS 22:14 | DX: R11.2 Nausea with vomiting, unspecified (principal); E11.649 Type 2 diabetes mellitus with hypoglycemia without coma | CPT/HCPCS: A0425; A0427 ==

== ENCOUNTER 2023-05-17 22:27 | Emergency (ER) | payer MEDICARE, BC ==
--- NOTE | 2023-05-17 22:57 | ED Physician Documentation ---
History of Present Illness - Stated complaint Stated Complaint: WEAKNESS, N/V - Chief complaint Chief Complaint: General - Additonal information Additional information: Patient 83-year-old male with past medical significant for congestive heart failure, chronic atrial fibrillation, insulin-dependent diabetes presenting to the emergency department with report of hypoglycemia. Per EMS they were called out because he was feeling weak and dizzy. He reports that he took his regular 20 units of fast acting insulin as well as 35 units of long-acting insulin before dinner. He reports eating ribs and states he ate a normal amount for him but nevertheless became weak and dizzy. EMS report that his blood sugar was 42 on arrival. He was given an ampule of D10 with immediate improvement in his symptoms. He denies any other changes in his medications. Denies chest pain, shortness of breath, fever, chill, illness or known sick contact. Review of Systems Constitutional: denies: Fever Eyes: denies: Loss of vision Ears: denies: Loss of hearing Nose: denies: Rhinorrhea / runny nose Throat: denies: Dental pain / toothache Cardiac: denies: Chest pain / pressure Respiratory: denies: Dyspnea GI: denies: Abdominal Pain : denies: Dysuria Skin: denies: Rash Musculoskeletal: denies: Neck pain Neurologic: denies: Generalized weakness Psychiatric: denies: Depressed Endocrine: denies: Polydypsia Immunocompromised: denies: Immunocompromised PD PAST MEDICAL HISTORY - Past Medical History Cardiovascular: Congestive heart failure, Hypertension, High cholesterol, Atrial fibrillation, Murmur, Valve disorder Respiratory: Asthma Neuro: CVA, Peripheral neuropathy Endocrine/Autoimmune: Type 2 diabetes GI: GERD, Chronic constipation : None HEENT: None Psych: None Musculoskeletal: Other Derm: Other drug resistant infections, Other - Past Surgical History Past Surgical History: Yes General: Colonoscopy, EGD Ortho: Knee replacement, Rotator cuff repair, Carpal Tunnel surgery, Spine surgery, Amputation Cardiovascular: CABG, Coronary stent HEENT: Tonsil/Adenoidectomy Derm: Skin cancer surgery - Present Medications Home Medications: Ambulatory Orders Medication Instructions Recorded Confirmed Insulin Aspart (Vial) [NovoLOG] 0 - 26 units SUBQ TIDWM 03/06/13 05/21/20 Insulin Detemir [Levemir] 70 unit SQ BID 03/06/13 05/21/20 Ramipril [Altace] 5 mg PO DAILY 03/06/13 05/21/20 Metoprolol Succinate [Toprol Xl] 25 mg PO BID 04/16/13 05/21/20 Multivitamin [Multivitamins] 1 each PO DAILY 04/16/13 05/21/20 Pregabalin [Lyrica] 200 - 300 mg PO BID 04/16/13 05/21/20 Atorvastatin Calcium 80 mg PO QPM 02/26/15 05/21/20 Dabigatran Etexilate Mesylate 150 mg PO BID 02/26/15 05/21/20 [Pradaxa] Albuterol Sulf [Ventolin Hfa 2 - 3 puffs INH Q4HR PRN #1 inhaler 04/12/18 05/21/20 Inhaler] Furosemide [Lasix] 20 mg PO DAILY #30 tablet 04/12/18 06/17/19 Isosorbide Mononitrate ER [Imdur] 1 tab PO DAILY 04/12/18 05/21/20 Fluticasone/Vilanterol [Breo 1 each IH DAILY 06/25/19 05/21/20 Ellipta 100-25 Mcg INH] Ipratropium/Albuterol [Combivent 4 gm IH DAILY 06/25/19 05/21/20 Respimat] Metformin HCl [Metformin HCl ER] 500 mg PO BID 06/25/19 05/21/20 Tramadol HCl [Ultram ER] 300 mg PO DAILY 06/25/19 05/21/20 Ciprofloxacin HCl [Cipro] 500 mg PO BID #20 tablet 05/21/20 Nitrofurantoin [Macrobid] 100 mg PO BID #14 cap 10/03/20 Furosemide [Lasix] 20 mg PO DAILY #30 tablet 11/29/21 cephALEXin [Keflex] 500 mg PO Q6H #28 cap 04/19/23 Dextrose [Glucose Gel] 38 gm PO PRN PRN #38 gm 05/18/23 - Allergies Allergies/Adverse Reactions: Allergies Allergy/AdvReac Type Severity Reaction Status Date / Time codeine [Codeine] Allergy Severe Emesis Verified 04/19/23 18:41 - Social History Does the pt smoke?: No Smoking Status: Never smoker Does the pt drink ETOH?: No Does the pt have substance abuse?: No - Immunizations Immunizations are current?: Yes - POLST Patient has POLST: No PD ED PE NORMAL - General General: Alert and oriented X 3, No acute distress, Well developed/nourished - HEENT HEENT: Atraumatic, PERRL, EOMI, Ears normal, Moist mucous membranes, Pharynx benign - Neck Neck: Supple, no meningeal sign, No bony TTP, No adenopathy, Thyroid normal, No JVD - Cardiac Cardiac: RRR - Respiratory Respiratory: No respiratory distress, Clear bilaterally - Abdomen Abdomen: Normal bowel sounds - Male Male : Deferred - Rectal Rectal: Deferred - Back Back: No CVA TTP - Derm Derm: Normal color - Extremities Extremities: No deformity, No tenderness to palpate, No edema, No calf tenderness / cord - Neuro Neuro: Alert and oriented X 3, 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 Relevant findings are: Atrial fibrillation with rate 64 bpm. Right bundle branch block morphology. Left axis deviation. There is no concordant ST segment elevations, concordant ST segment depressions or excessive discordance in any lead. - Labs Labs: Laboratory Tests 05/17/23 05/17/23 05/18/23 23:05 23:05 00:11 WBC 9.3 RBC 4.21 L Hgb 12.9 L Hct 40.0 L MCV 95.0 H MCH 30.6 MCHC 32.3 RDW 14.2 Plt Count 222 MPV 9.3 Neut # (Auto) 8.3 H Lymph # (Auto) 0.5 L Tama # (Auto) 0.4 Eos # (Auto) 0.1 Baso # (Auto) 0.0 Absolute Nucleated RBC 0.00 Nucleated RBC % 0.0 Sodium 134 L Potassium 4.5 Chloride 101 Carbon Dioxide 27 Anion Gap 6.0 BUN 26 H Creatinine 1.1 Estimated GFR (MDRD) 64 L Glucose 95 POC Whole Bld Glucose 87 Calcium 9.3 Total Bilirubin 0.8 AST 42 ALT 28 Alkaline Phosphatase 50 Total Protein 7.1 Albumin 3.9 Globulin 3.2 Albumin/Globulin Ratio 1.2 Lipase 7 L Ethyl Alcohol < 10.0 PD Medical Decision Making - ED course Complexity details: reviewed old records, reviewed results, re-evaluated patient, considered differential, d/w patient ED course: Patient 83-year-old male presenting to the emergency department with hypoglycemia. Has been seen in the emergency department for similar episodes in the past. Alert and orientated on my evaluation. Denied use of any sulfonylureas. Labs obtained generally within normal limits or nonactionable. Monitored in the emergency department for several hours and is maintaining his blood sugars well enough at this time. Will discharge with medications for further episodes of hypoglycemia. Will encourage him to follow-up with his primary care doctor soon as possible concerning this evening incident to discuss what if any necessary changes are required in his current diabetic regimen. Encouraged prompt return to the emergency department for new or worsening symptoms. Departure - Departure Disposition: Home, Self Care Clinical Impression: Hypoglycemia Prescriptions: Dextrose [Glucose Gel] 38 gm PO PRN PRN #38 gm PRN Reason: As Needed Per Provider Orders Comments: Thank you for allowing us to care for you this evening at [facility]. Here in the emergency department your blood sugars have been Remaining stable. The remainder of your tests are also very reassuring. I do want you to reach out to your primary care doctor first thing tomorrow morning in order to discuss your current diabetic medications. I written a prescription for an oral glucose supplement and like you to fill this prescription and have it on hand at all time. You are to use this supplement in the event that you feel any symptoms of hypoglycemia such as shakiness, lightheadedness, nausea or vomiting. If it anytime you have any new or worsening symptoms please call 911 or otherwise return to the emergency department immediately for reevaluation. Forms: PCP List
[2023-05-17 23:08] LABS: BASOPHILS % (AUTO) 0.4 %; EOSINOPHILS # (AUTO) 0.1 10^3/uL (0.0-0.7); EOSINOPHILS % (AUTO) 0.6 %; HGB - HEMOGLOBIN 12.9 g/dL (14.0-18.0); LYMPHOCYTES # (AUTO) 0.5 10^3/uL (1.5-3.5); MEAN CORPUSCULAR HEMOGLOBIN 30.6 pg (27.0-31.0); MEAN CORPUSCULAR HGB CONC 32.3 g/dL (32.0-36.0); MEAN PLATELET VOLUME 9.3 fL (7.4-11.4); MONOCYTES # (AUTO) 0.4 10^3/uL (0.0-1.0); MONOCYTES % (AUTO) 4.6 %; NEUTROPHILS # (AUTO) 8.3 10^3/uL (1.5-6.6); NEUTROPHILS % (AUTO) 89.2 %; PLT - PLATELET COUNT 222 10^3/uL (130-450); RED BLOOD COUNT 4.21 10^6/uL (4.70-6.10); RED CELL DISTRIBUTION WIDTH 14.2 % (12.0-15.0); WHITE BLOOD COUNT 9.3 x10^3/uL (4.8-10.8)
[2023-05-17 23:23] LABS: ALBUMIN 3.9 g/dL (3.2-5.5); ALBUMIN/GLOBULIN RATIO 1.2 (1.0-2.2); ALKALINE PHOSPHATASE 50 IU/L (42-121); ALT ALANINE AMINOTRANSFERASE 28 IU/L (10-60); AST ASPARTATE AMINOTRANSFERASE 42 IU/L (10-42); BILIRUBIN,TOTAL 0.8 mg/dL (0.2-1.0); BUN - BLOOD UREA NITROGEN 26 mg/dL (6-20); CALCIUM 9.3 mg/dL (8.5-10.3); CARBON DIOXIDE - CO2 27 mmol/L (21-32); CHLORIDE 101 mmol/L (101-111); CREATININE 1.1 mg/dL (0.6-1.3); ETOH - ETHANOL < 10.0 mg/dL; GFR - MDRD 64 (>89); GLUCOSE 95 mg/dL (74-104); POTASSIUM 4.5 mmol/L (3.5-4.5); SODIUM 134 mmol/L (135-145); TOTAL PROTEIN 7.1 g/dL (6.4-8.9)
[2023-05-17 23:32] LABS: LIPASE 7 U/L (11-82)
[2023-05-18 00:35] VITALS: BP 137/86; O2SAT 99
== END 2023-05-18 00:34 | disposition home or self-care (01) ==
LOC: EDUNIT# → ED 22:27
DX: E11.649 Type 2 diabetes mellitus with hypoglycemia without coma (principal); Z79.4 Long term (current) use of insulin; Z79.84 Long term (current) use of oral hypoglycemic drugs
CPT/HCPCS: 36415; 80053; 83690; 85025; 93005; 99284; G0480; 80320

== ENCOUNTER 2023-06-29 13:45 | Outpatient (CLI) | payer MEDICARE, BC | END 2023-06-29 13:46 | disposition critical access hospital (66) | LOC: EMS 13:45 | DX: S81.012A Laceration without foreign body, left knee, initial encounter (principal); S81.011A Laceration without foreign body, right knee, initial encounter; W19.XXXA Unspecified fall, initial encounter; Y93.89 Activity, other specified; Y92.003 Bedroom of unspecified non-institutional (private) residence as the place of occurrence of the external cause; R06.2 Wheezing | CPT/HCPCS: A0425; A0427 ==

== ENCOUNTER 2023-06-29 13:54 | Emergency (ER) | payer MEDICARE, BC ==
[2023-06-29] MEDS ORDERED: diltiaZEM INJ 5 MG/ML VIAL IVP STA (14:30)
--- NOTE | 2023-06-29 14:32 | ED Physician Documentation ---
History of Present Illness - Stated complaint Stated Complaint: SOA/GLF - Chief complaint Chief Complaint: Resp - History obtained from History obtained from: Patient - Additonal information Additional information: This is an 84-year-old gentleman here because a history of CHF, hypertension, atrial fibrillation status post Watchman device, the valve replacement, type 2 diabetes, asthma, and a prior CVA. He presents today after feeling short of breath at home and falling at some point overnight. He states he felt unsteady when he stood up and fell to the ground. He lives alone and was unable to get up or get assistance until about 12 hours later at which time he was able to phone EMS. He had been on the ground for the duration of that time. He was found to be hypoxic by EMS and placed on oxygen and he was given an DuoNeb prior to arrival due to diffuse wheezing. Patient states he is not on oxygen at home. He is reporting shortness of breath cough and wheezing, no chest pain, no fever or chills, no abdominal pain nausea vomiting or diarrhea. He does not have any lower extremity edema. He does have numerous scrapes and scratches from falls on his legs. He is not sure if he is on the Lasix at home, he is not on any anticoagulation currently, and he is not sure what medications he is taking. He lives independently and would like to continue to do so, has no desire to go to a care facility. Review of Systems Constitutional: reports: Reviewed and negative Eyes: reports: Reviewed and negative Ears: reports: Reviewed and negative PD PAST MEDICAL HISTORY - Past Medical History Past Medical History: Yes Cardiovascular: Congestive heart failure, Hypertension, High cholesterol, Atrial fibrillation, Murmur, Valve disorder Respiratory: Asthma Neuro: CVA, Peripheral neuropathy Endocrine/Autoimmune: Type 2 diabetes GI: GERD, Chronic constipation : None HEENT: None Psych: None Musculoskeletal: Other Derm: Other drug resistant infections, Other - Past Surgical History Past Surgical History: Yes General: Colonoscopy, EGD Ortho: Knee replacement, Rotator cuff repair, Carpal Tunnel surgery, Spine surgery, Amputation Cardiovascular: CABG, Coronary stent HEENT: Tonsil/Adenoidectomy Derm: Skin cancer surgery - Present Medications Home Medications: Ambulatory Orders Medication Instructions Recorded Confirmed Insulin Aspart (Vial) [NovoLOG] 0 - 26 units SUBQ TIDWM 03/06/13 05/21/20 Insulin Detemir [Levemir] 70 unit SQ BID 03/06/13 05/21/20 Ramipril [Altace] 5 mg PO DAILY 03/06/13 05/21/20 Metoprolol Succinate [Toprol Xl] 25 mg PO BID 04/16/13 05/21/20 Multivitamin [Multivitamins] 1 each PO DAILY 04/16/13 05/21/20 Pregabalin [Lyrica] 200 - 300 mg PO BID 04/16/13 05/21/20 Atorvastatin Calcium 80 mg PO QPM 02/26/15 05/21/20 Dabigatran Etexilate Mesylate 150 mg PO BID 02/26/15 05/21/20 [Pradaxa] Albuterol Sulf [Ventolin Hfa 2 - 3 puffs INH Q4HR PRN #1 inhaler 04/12/18 05/21/20 Inhaler] Furosemide [Lasix] 20 mg PO DAILY #30 tablet 04/12/18 06/17/19 Isosorbide Mononitrate ER [Imdur] 1 tab PO DAILY 04/12/18 05/21/20 Fluticasone/Vilanterol [Breo 1 each IH DAILY 06/25/19 05/21/20 Ellipta 100-25 Mcg INH] Ipratropium/Albuterol [Combivent 4 gm IH DAILY 06/25/19 05/21/20 Respimat] Metformin HCl [Metformin HCl ER] 500 mg PO BID 06/25/19 05/21/20 Tramadol HCl [Ultram ER] 300 mg PO DAILY 06/25/19 05/21/20 Ciprofloxacin HCl [Cipro] 500 mg PO BID #20 tablet 05/21/20 Nitrofurantoin [Macrobid] 100 mg PO BID #14 cap 10/03/20 Furosemide [Lasix] 20 mg PO DAILY #30 tablet 11/29/21 cephALEXin [Keflex] 500 mg PO Q6H #28 cap 04/19/23 Dextrose [Glucose Gel] 38 gm PO PRN PRN #38 gm 05/18/23 - Allergies Allergies/Adverse Reactions: Allergies Allergy/AdvReac Type Severity Reaction Status Date / Time codeine [Codeine] Allergy Severe Emesis Verified 06/29/23 14:08 - Social History Does the pt smoke?: No Smoking Status: Never smoker Does the pt drink ETOH?: No Does the pt have substance abuse?: No - Immunizations Immunizations are current?: Yes - POLST Patient has POLST: No PD ED PE NORMAL - Vitals Vital signs reviewed: Yes - General General: Alert and oriented X 3, No acute distress - HEENT HEENT: Atraumatic, Moist mucous membranes, Pharynx benign - Neck Neck: Supple, no meningeal sign, No JVD - Cardiac Cardiac: No murmur, No gallop, Strong equal pulses, Other (irregular) - Respiratory Respiratory: Other (bilateral exp wheezes and bibasilar crackles, mild dyspena at rest) - Abdomen Abdomen: Normal bowel sounds, Soft, Non tender, Non distended - Derm Derm: Warm and dry, Other (numerous scraps on knees and shins bilat. hyperkeratotic lesion bottom of right foot. small pressure ulceration left great toe. ) - Extremities Extremities: No deformity, No tenderness to palpate, Normal ROM s pain, No edema, No calf tenderness / cord - Neuro Neuro: Alert and oriented X 3, No motor deficit, No sensory deficit, Normal speech Eye Opening: Spontaneous Motor: Obeys Commands Verbal: Oriented GCS Score: 15 - Psych Psych: Normal mood, Normal affect Results - Vitals Vitals: Vital Signs - 24 hr 06/29/23 06/29/23 06/29/23 13:59 14:18 16:31 Temperature 36.2 C L Heart Rate 99 104 H 81 Respiratory 30 H 34 H 20 Rate Blood Pressure 148/99 H 135/94 H 158/127 H O2 Saturation 87 L 98 100 If not protocol 4 2 : Oxygen Flow, liters/minute Oxygen O2 Source Nasal cannula Oxygen Flow Rate 2 - EKG (time done) No standard instances EKG releavant findings:: EKG personally interpreted by author of this note. Relevant findings are: Rate: Rate (enter#) (102) Rhythm: Atrial fibrillation QRS: Normal Ischemia: Normal ST segments Compare to prior EKG: Unchanged from prior EKG Computer interpretation: Agree with computer - Labs Labs: Laboratory Tests 06/29/23 06/29/23 06/29/23 14:40 14:40 14:40 WBC 9.2 RBC 4.20 L Hgb 12.7 L Hct 39.8 L MCV 94.8 H MCH 30.2 MCHC 31.9 L RDW 16.2 H Plt Count 216 MPV 9.1 Neut # (Auto) 8.2 H Lymph # (Auto) 0.3 L Dukes # (Auto) 0.7 Eos # (Auto) 0.0 Baso # (Auto) 0.0 Absolute Nucleated RBC 0.00 Nucleated RBC % 0.0 Sodium 136 Potassium 4.7 H Chloride 102 Carbon Dioxide 23 Anion Gap 11.0 BUN 29 H Creatinine 1.1 Estimated GFR (MDRD) 64 L Glucose 202 H Lactic Acid 2.2 Calcium 8.8 Total Bilirubin 1.3 H AST 67 H ALT 38 Alkaline Phosphatase 65 Total Creatine Kinase Troponin I High Sens 307.5 H* B-Natriuretic Peptide Cancelled Total Protein 6.8 Albumin 3.6 Globulin 3.2 Albumin/Globulin Ratio 1.1 Lipase 11 Urine Color Urine Clarity Urine pH Ur Specific Thurmond Urine Protein Urine Glucose (UA) Urine Ketones Urine Occult Blood Urine Nitrite Urine Bilirubin Urine Urobilinogen Ur Leukocyte Esterase Urine RBC Urine WBC Ur Squamous Epith Cells Amorphous Sediment Urine Bacteria Ur Microscopic Review Urine Culture Comments 06/29/23 06/29/23 06/29/23 14:40 14:40 15:54 WBC RBC Hgb Hct MCV MCH MCHC RDW Plt Count MPV Neut # (Auto) Lymph # (Auto) Dukes # (Auto) Eos # (Auto) Baso # (Auto) Absolute Nucleated RBC Nucleated RBC % Sodium Potassium Chloride Carbon Dioxide Anion Gap BUN Creatinine Estimated GFR (MDRD) Glucose Lactic Acid Calcium Total Bilirubin AST ALT Alkaline Phosphatase Total Creatine Kinase 2813 H* Troponin I High Sens B-Natriuretic Peptide 1227 H Total Protein Albumin Globulin Albumin/Globulin Ratio Lipase Urine Color YELLOW Urine Clarity HAZY Urine pH 5.5 Ur Specific Thurmond >=1.030 H Urine Protein 100 H Urine Glucose (UA) 500 H Urine Ketones 15 H Urine Occult Blood LARGE H Urine Nitrite NEGATIVE Urine Bilirubin NEGATIVE Urine Urobilinogen 0.2 (NORMAL) Ur Leukocyte Esterase NEGATIVE Urine RBC 0-5 Urine WBC 0-3 Ur Squamous Epith Cells NONE SEEN Amorphous Sediment Moderate Urine Bacteria Few Ur Microscopic Review INDICATED Urine Culture Comments NOT INDICATED 06/29/23 16:15 WBC RBC Hgb Hct MCV MCH MCHC RDW Plt Count MPV Neut # (Auto) Lymph # (Auto) Dukes # (Auto) Eos # (Auto) Baso # (Auto) Absolute Nucleated RBC Nucleated RBC % Sodium Potassium Chloride Carbon Dioxide Anion Gap BUN Creatinine Estimated GFR (MDRD) Glucose Lactic Acid Calcium Total Bilirubin AST ALT Alkaline Phosphatase Total Creatine Kinase Troponin I High Sens 379.3 H* B-Natriuretic Peptide Total Protein Albumin Globulin Albumin/Globulin Ratio Lipase Urine Color Urine Clarity Urine pH Ur Specific Thurmond Urine Protein Urine Glucose (UA) Urine Ketones Urine Occult Blood Urine Nitrite Urine Bilirubin Urine Urobilinogen Ur Leukocyte Esterase Urine RBC Urine WBC Ur Squamous Epith Cells Amorphous Sediment Urine Bacteria Ur Microscopic Review Urine Culture Comments - Rads (name of study) No standard instances Relevant Findings:: Final report received, See rad report PD Medical Decision Making - ED course Complexity details: reviewed old records, reviewed results, re-evaluated patient, considered differential, d/w patient ED course: This is an 83-year-old male with past medical history of CHF An additional history as listed above who presented after a fall at home after which she was on the ground for approximately 12 hours. He presented here hypoxic and in mild respiratory distress with no other acute concerns. Differentials considered included acute CHF exacerbation, COPD exacerbation, pneumonia, ACS, among others. We obtained an x-ray shortly after arrival which showed Diffuse fluid overload per my read and the patient was subsequently given 40 mg grams of IV Lasix. A Messina catheter was placed and the patient had excellent urine output with improvement in his respiratory status. We were able to titrate from 4 L down to 2 and the patient is feeling more comfortable. We also obtained a EKG which showed atrial fibrillation in the low 100s this is similar to prior. The patient was given 20 mg of IV diltiazem with rate improvement into the 80s, he remains in atrial fibrillation. The patient's labs were significant for a stable CBC, no leukocytosis, his CMP revealed Stable renal function and electrolytes. His high-sensitivity troponin initially was elevated in the 300s. I repeat was 379. The patient's BNP is significantly elevated at 1200 and his CK is also elevated in the 1999's. Blood cultures x2 were obtained as well as a lactate given the patient's tachycardia and possibility of sepsis so lactate is normal and the remainder of exam not consistent with sepsis. I suspect that the patient's elevated troponin is secondary to CHF exacerbation as patient has no chest pain and there and there are no acute EKG changes. We will continue to diuresis patient and we will trend his troponins. I did discuss the possibility of starting a heparin drip with the ED attending, Dr. Douglas, however given the patient's lack of chest pain or EKG changes, it was felt that the elevated troponin was not secondary to ACS andHeparin was not initiated. The patient will need admission for ongoing diuresis for CHF exacerbation as well as trending troponins however unfortunately we do not have any inpatient medical beds at this time. We will pursue transfer to an outside hospital however at this time there are no available facilities. I have ordered twice daily Lasix IV for now, and will attempt to resume patient's home medication once confirmed though patient is not sure what medications he has been taking at home patient is currently feeling substantially better and resting quietly here in the ER on 2 L nasal cannula. Departure - Departure Disposition: [facility] DC/Xfer Clinical Impression: Acute exacerbation of CHF (congestive heart failure) Qualifiers: Heart failure type: unspecified Qualified Code(s): I50.9 - Heart failure, unspecified Forms: PCP List
[2023-06-29 14:45] LABS: BASOPHILS % (AUTO) 0.3 %; HCT - HEMATOCRIT 39.8 % (42.0-52.0); HGB - HEMOGLOBIN 12.7 g/dL (14.0-18.0); LYMPHOCYTES # (AUTO) 0.3 10^3/uL (1.5-3.5); LYMPHOCYTES % (AUTO) 2.9 %; MEAN CORPUSCULAR HEMOGLOBIN 30.2 pg (27.0-31.0); MEAN CORPUSCULAR HGB CONC 31.9 g/dL (32.0-36.0); MEAN CORPUSCULAR VOLUME 94.8 fL (80.0-94.0); MEAN PLATELET VOLUME 9.1 fL (7.4-11.4); MONOCYTES # (AUTO) 0.7 10^3/uL (0.0-1.0); MONOCYTES % (AUTO) 7.5 %; NEUTROPHILS # (AUTO) 8.2 10^3/uL (1.5-6.6); PLT - PLATELET COUNT 216 10^3/uL (130-450); RED CELL DISTRIBUTION WIDTH 16.2 % (12.0-15.0); WHITE BLOOD COUNT 9.2 x10^3/uL (4.8-10.8)
[2023-06-29] MEDS ORDERED: FUROSEMIDE 40 MG/4 ML VIAL IVP STA (14:45)
[2023-06-29 14:56] LABS: ALBUMIN 3.6 g/dL (3.2-5.5); ALBUMIN/GLOBULIN RATIO 1.1 (1.0-2.2); BILIRUBIN,TOTAL 1.3 mg/dL (0.2-1.0); CALCIUM 8.8 mg/dL (8.5-10.3); CREATININE 1.1 mg/dL (0.6-1.3); POTASSIUM 4.7 mmol/L (3.5-4.5); TOTAL PROTEIN 6.8 g/dL (6.4-8.9)
--- NOTE | 2023-06-29 15:06 | XRAY Report ---
PROCEDURE: Chest 1 View X-Ray INDICATIONS: chest pain TECHNIQUE: One view of the chest was acquired. COMPARISON: Chest x-ray 11/28/2021. FINDINGS: Surgical changes and devices: None. Lungs and pleura: Prominent interstitial markings.. Lungs are clear. Mediastinum: Mediastinal contours appear normal. Heart size is enlarged. Bones and chest wall: No suspicious bony lesions. Overlying soft tissues appear unremarkable. IMPRESSION: Diffuse interstitial prominence and cardiomegaly, findings are concerning for pulmonary edema. Reviewed by: Silas Barriga MD on 06/29/2023 3:05 PM PST Approved by: Silas Barriga MD on 06/29/2023 3:05 PM PST Station ID: [id number]
[2023-06-29 15:13] LABS: TROPONIN I HIGH SENSITIVITY 307.5 ng/L (2.3-19.7)
[2023-06-29 16:26] LABS: BILIRUBIN,URINE NEGATIVE (NEGATIVE); GLUCOSE, URINE (UA) 500 mg/dL (NEGATIVE); KETONES,URINE (UA) 15 mg/dL (NEGATIVE); LEUKOCYTE ESTERASE, URINE NEGATIVE (NEGATIVE); NITRITE,URINE NEGATIVE (NEGATIVE); OCCULT BLOOD,URINE LARGE (NEGATIVE); PH,URINE 5.5 PH (5.0-7.5); PROTEIN,URINE 100 mg/dL (NEGATIVE); UROBILINOGEN,URINE 0.2 (NORMAL) E.U./dL (NORMAL)
[2023-06-29 16:27] LABS: CLARITY,URINE HAZY (CLEAR)
[2023-06-29 16:55] LABS: AMORPHOUS SEDIMENT,UR Moderate /LPF; BACTERIA,URINE Few /HPF (None Seen); RBC,URINE 0-5 /HPF (0-5); SQUAMOUS EPITHELIAL CELL,UR NONE SEEN (<= Few); WBC,URINE 0-3 /HPF (0-3)
[2023-06-29] MEDS: FUROSEMIDE 40 MG/4 ML VIAL IVP SCH ×2 (17:16→21:32)
[2023-06-29] MEDS ORDERED: IPRATROPIUM/ALBUTEROL 3 ML NEB INH STA (18:22)
[2023-06-29] MEDS ORDERED: ACETAMINOPHEN 500 MG TABLET PO PRN (18:27)
[2023-06-29] MEDS ORDERED: ONDANSETRON 4 MG/2 ML VIAL IVP PRN (18:27)
[2023-06-29 18:53] LABS: ESTIMATED AVERAGE GLUCOSE 171 mg/dL (70-100); HEMOGLOBIN A1c% 7.6 % (4.27-6.07)
[2023-06-29] MEDS ORDERED: INSULIN LISPRO 300 UNIT/3 ML PEN SUBQ SCH (21:00)
[2023-06-29] MEDS ORDERED: METOPROLOL TARTRATE 25 MG TABLET PO SCH (21:00)
[2023-06-29] MEDS ORDERED: INSULIN GLARGINE-YFGN 300 UNIT/3 ML PEN SUBQ SCH (21:00)
[2023-06-29] MEDS ORDERED: HEPARIN 25000UNITS/500ML (D5W) 25,000 UNIT/500 ML BAG IV SCH (21:00)
[2023-06-29] MEDS ORDERED: HEPARIN 5,000 UNIT/ML VIAL IVP ONE (21:00)
--- NOTE | 2023-06-29 23:36 | CT Report ---
PROCEDURE: ANGIO CHEST W/WO INDICATIONS: r/o PE CONTRAST: 100 ML OMNI 300 TECHNIQUE: After the administration of intravenous contrast, 2 mm axial images were acquired from the pulmonary apices to the posterior costophrenic angles during the arterial phase. In addition, 1 mm lung kernel and 5 mm soft tissue kernel reconstructions were performed. 3-dimensional coronal oblique maximum int ensity projection (MIP) reformats, 8 mm axial MIP, and 5 mm coronal and sagittal MPR reformats were t hen performed through the thorax. For radiation dose reduction, the following was used: automated exp osure control, adjustment of mA and/or kV according to patient size. COMPARISON: Same day x-ray, x-ray 11/28/2021. FINDINGS: Image quality: Suboptimal due to arm positioning and motion artifact. Large vessels: No filling defects within the opacified pulmonary arteries, accounting for motion and contrast timing. No evidence of acute aortic syndrome or aortic aneurysm. Lungs and pleura: No consolidation. Moderate right pleural effusion. No suspicious pulmonary nodules which require follow up. Diffuse mosaic attenuation of the lungs. Mediastinum: Heart size is enlarged. No pericardial effusion. No large vessel abnormality. No mediast inal adenopathy by size criteria. Chest wall and lower neck: Thyroid is unremarkable. No axillary or supraclavicular adenopathy by size . Bones: No aggressive osseous abnormality. Upper Abdomen: Unremarkable. IMPRESSION: Suboptimal evaluation due to arm positioning and motion artifact. No clinically significant pulmonary embolus. Diffuse air trapping. Moderate right pleural effusion. Reviewed by: Randal Castro on 06/29/2023 11:35 PM PST Approved by: Randal Castro on 06/29/2023 11:35 PM PST Station ID: [id number]
[2023-06-30] MEDS ORDERED: iohexoL-300 100 ML VIAL IVP ONE (00:08)
[2023-06-30 03:46] VITALS: BP 132/74
[2023-06-30 03:58] LABS: INR 1.6 (0.8-1.2); PT - PROTHROMBIN TIME 16.8 secs (9.9-12.6)
[2023-06-30 04:21] VITALS: O2SAT 99
[2023-06-30] MEDS ORDERED: ENOXAPARIN 40 MG/0.4 ML SYRINGE SUBQ SCH (09:00)
== END 2023-06-30 04:13 | disposition short-term general hospital (02) ==
LOC: EDUNIT# → ED 13:54
DX: I21.4 Non-ST elevation (NSTEMI) myocardial infarction (principal); I50.9 Heart failure, unspecified; R09.02 Hypoxemia; I48.91 Unspecified atrial fibrillation; R00.0 Tachycardia, unspecified; R79.89 Other specified abnormal findings of blood chemistry
CPT/HCPCS: 36415; 51702; 71045; 71275; 80053; 81001; 82550; 83036; 83605; 83690; 83880; 84484; 85025; 85610; 85730; 87040; 93005; 94640; 96365; 96366; 96375; 96376; 99285; A9270; J1815; Q9967; 80048; 81003; 87086